=== PATIENT | male | born 1985 | race Caucasian/White ===

== ENCOUNTER 2017-10-13 01:14 | Emergency (ER) | payer SELFPAY ==
[2017-10-13 01:15] VITALS: BP 118/66; PULSE 75; RESP 19; TEMP 36.6; O2SAT 94; BMI 19.8
--- NOTE | 2017-10-13 01:39 | RAD_ITS ---
STUDY: X-RAY CHEST REASON FOR EXAM: Male, 31 years old. Cough and possible infected Srivastava's catheter. TECHNIQUE: PA and lateral views of the chest. COMPARISON: September 26, 2015. FINDINGS: Right-sided Srivastava catheter is present with the tip of the catheter at the cavoatrial junction. The lungs are hyperexpanded. There is mild prominence of bronchovascular markings, particularly in the right lung. There is no demonstrated pleural abnormality. Normal size heart. Normal mediastinum and minerva. There is prominence of the pulmonary hilar arteries without peripheral pulmonary vascular congestion. Normal visualized aortic arch and descending thoracic aorta. Normal visualized thoracic spine. Normal visualized ribs, clavicles, and shoulders. There is no demonstrated abnormality of the visualized soft tissue structures of the upper abdomen. RAD/Chest PA and Lateral IMPRESSION: Mild pulmonary congestion. Electronically Signed: Josie Cuevas MD at 3:48 EDT , Service support ,
[2017-10-13 02:26] VITALS: BP 128/83; PULSE 74; RESP 18
[2017-10-13 02:26] LABS: Absolute Lymphocyte Count 2.64 X10^3/ul (0.83-4.51); Absolute Neutrophil Count 7.2 X10^3/uL (2.0-7.7); Basophil# 0.08 X10^3/uL; Basophil% 0.7 % (0-1); Eosinophil# 0.49 X10^3/uL; Eosinophils% 4.2 % (0-5); Hematocrit 46.2 % (40-54); Hemoglobin 15.7 g/dl (13.0-16.5); Lymphocyte # 2.64 X10^3/ul (4.0); Lymphocyte % 22.6 % (19-41); Mean Corpuscular Hgb 30.5 pg (27.0-32.0); Mean Corpuscular Volume 89.9 fL (80-94); Mean Platelet Vol. 9.3 fl (6.2-12.0); Monocyte# 1.23 X10^3/uL; Monocyte% 10.5 % (0-10); Neutrophil # 7.22 X10^3/uL (2.7-7.7); Neutrophil % 61.8 % (47-70); Platelet Count 303 K/mm3 (150-450); RBC Distribution Width SD 48.7 fl (35.1-43.9); Red Blood Count 5.14 M/mm3 (4.6-6.2); White Blood Count 11.7 K/mm3 (4.4-11.0)
[2017-10-13 02:29] LABS: POSITIVE COUNT NO; POSITIVE DIFFERENTIAL NO; POSITIVE MORPHOLOGY NO
[2017-10-13 02:35] LABS: Prothrombin Time (Protime)PT. 13.5 SECONDS (11.7-14.9)
[2017-10-13 02:36] LABS: Partial Thromboplast Time 32.3 Seconds (24.1-36.2)
[2017-10-13 02:38] LABS: ALB/GLOB Ratio 1.2 RATIO (0.9-2.4); AST(SGOT) 12 U/L (15-37); Alanine Aminotransfer ALT/SGPT 19 U/L (16-61); Albumin, Serum 3.8 g/dL (3.2-5.0); Alkaline Phosphatase 103 U/L (45-117); Anion Gap 6 (5-15); BUN 7 mg/dL (7-18); BUN/Creat Ratio 7.3 RATIO (10-20); Calcium,Total 8.6 mg/dL (8.5-10.1); Chloride 110 mmol/L (98-107); Creatinine, Serum 0.96 mg/dL (0.70-1.30); EST Glomerular Filtration Rate 97 mL/min (>60); Est Glom Filt Rate - Afr Amer 117 mL/min (>60); Estimated Creatinine Clearance 101.56 ml/min; Globulin 3.3 g/dL (2.2-4.2); Glucose 106 mg/dL (74-106); Lactic Acid 0.7 mmol/L (0.4-2.0); Potassium 3.3 mmol/L (3.5-5.1); Protein, Total 7.1 g/dL (6.4-8.2); Sodium Level 143 mmol/L (136-145)
--- NOTE | 2017-10-13 03:11 | RAD_ITS ---
STUDY: X-RAY - LEFT WRIST REASON FOR EXAM: Male, 31 years old. Jumped off a roof, landed on wrist one month ago. Patient punched a door one week ago. Pain TECHNIQUE: 3 view(s) of the wrist were obtained. COMPARISON: Left hand 08/09/2015 FINDINGS: There is a curvilinear osseous fragment dorsal carpal level on lateral view. There is adjacent soft tissue swelling. Normal visualized distal radius and ulna. Normal radiocarpal articulation. Normal distal radioulnar articulation. Otherwise normal carpal bones. Normal carpal articulations. Normal carpometacarpal articulation of the thumb. Normal second through fifth carpometacarpal articulations. Normal visualized metacarpal bones. The soft tissue structures are unremarkable. RAD/Wrist min 3 Views IMPRESSION: Fracture of the triquetrum, new since previous examination with soft tissue swelling. Electronically Signed: Dominga Mitchell MD at 4:20 EDT , Service support ,
--- NOTE | 2017-10-13 04:11 | ED.VISSUMM ---
- ER Visit Summary Date of Service: 10/13/17 Chief Complaint: Skin infection History of Present Illness: The patient is a 31 M presenting for evaluation due to concern for a skin infection. Patient has a unusual history of having severe pulmonary hypertension. He has a Srivastava catheter in his chest, and has a pump that administers prostaglandins continuously into his bloodstream. Patient states that over the course of the last couple of days he has had some increasing redness and pain surrounding his catheter. He denies any constitutional symptoms such as fever. He denies any other infectious signs or symptoms such as nausea vomiting diarrhea cough runny nose sore throat. Patient states that this catheter has been in place for about 4 years without any sort of complications. He does dressing changes every other day. Review of systems otherwise negative. Physical Examination: Vital signs are within normal limits, patient is afebrile. Well-nourished male sitting comfortably in the bed. Moist mucous membranes no conjunctival pallor no scleral icterus. No JVD noted. Heart was regular rate and rhythm. Respirations were nondistressed, lungs were clear. There is diffuse blanching erythema across the patient's chest and back which he states is chronic and is associated with his prostaglandin infusion, but there is a mild amount of confluent erythema directly surrounding the patient's Srivastava catheter. Dressing was taken down and the catheter was found to be clean dry and intact. Remainder the physical otherwise is unremarkable. Test Results: CBC shows only mild leukocytosis of 11.7, chemistry is within normal limits, chest x-ray shows pulmonary vascular congestion, wrist x-ray shows no evidence of acute fracture per my personal review Emergency Department Course and Treatment: Patient presented for evaluation due to concern for an infection. Patient was evaluated with lab work showed only a mild leukocytosis no evidence of acidosis or anion gap. His chest x-ray was unremarkable. Patient is well appearing, his erythema seems very localized, is not septic I do believe that he is appropriate for initial treatment with oral antibiotics. He has a severe penicillin allergy, and states that azithromycin has worked for him in the past so he was started on a course of azithromycin. Patient understands signs and symptoms which to return to follow-up with his primary care physician. While in the emergency department the patient did complain that he injured his wrist a couple weeks ago, and x-ray was obtained which showed no acute fracture he was recommended conservative management. Disposition: Discharge Impression: 1. Right chest cellulitis 2. Left wrist sprain This note was generated with [employer] dictation software. It may contain incorrect words, spelling, and punctuation that were not noted in review of the chart prior to signing ED Disposition - Plan for ED Patient: Disposition: Home or Assisted Living Chief Complaint: Wound Diagnosis: Cellulitis, Wrist sprain Instructions: ED Infec Skin Cellulitis Prescriptions: Azithromycin [Zithromax] 250 mg PO DAILY #4 tab Additional Instructions: Followup with your PCP in 3-5 days. Return immediately for worsening symptoms
[2017-10-13] MEDS: Azithromycin 250 MG Tablet 500 MG PO (04:30)
[2017-10-13 04:42] VITALS: BP 109/88; PULSE 74; RESP 18; TEMP 36.6; O2SAT 94
== END 2017-10-13 04:43 | disposition home or self-care (01) ==
PROVIDERS: Emergency Provider Emergency Medicine
DX: T80.212A Local infection due to central venous catheter, initial encounter (principal); L03.313 Cellulitis of chest wall; S63.502A Unspecified sprain of left wrist, initial encounter; X58.XXXA Exposure to other specified factors, initial encounter; Y93.9 Activity, unspecified; Y92.9 Unspecified place or not applicable; I27.20 Pulmonary hypertension, unspecified; Z72.0 Tobacco use
CPT/HCPCS: 36415; 71046; 73110; 80053; 83605; 85025; 85610; 85730; 87040; 99285; A4216

== ENCOUNTER 2018-02-01 19:51 | Emergency (ER) | payer SELFPAY ==
[2018-02-01 19:52] VITALS: BP 126/70; PULSE 67; RESP 16; TEMP 36.5; O2SAT 99; BMI 22.9
--- NOTE | 2018-02-01 20:13 | CT_ITS ---
STUDY: CT ABDOMEN AND PELVIS WITH CONTRAST REASON FOR EXAM: Male, 32 years old. Right lower quadrant and suprapubic pain RADIATION DOSAGE (If Supplied By Facility): CTDIvol = ( 8.25 ) mGy, DLP = ( 358.42 ) mGycm TECHNIQUE: Transaxial images were obtained from the dome of the diaphragm to the symphysis pubis without oral contrast. 100 ml of Isovue 300 contrast was administered. Sagittal and coronal images were reconstructed. Individualized dose optimization techniques were used for this CT. COMPARISON: None. FINDINGS: The visualized lung bases are unremarkable. The heart size is normal. There is no pericardial effusion. There is a 1.6 x 1.0 cm right hepatic lobe cyst. There is an additional 1.1 cm cyst of the inferior right hepatic lobe tip. There is intrahepatic periportal edema. Normal gallbladder and extrahepatic biliary system. Normal spleen. Normal pancreas. There is mild dilatation of the pancreatic duct measuring up to 3 mm. There is a lower pole 1.4 cm cyst of the right kidney. Normal left kidney. There is a large amount of food in the stomach. Normal small intestine. Normal colon. There is non-visualization of the appendix. Normal abdominal aorta. Normal inferior vena cava. Normal retroperitoneum. Normal urinary bladder. The prostate is slightly generous in size. There is diffusely increased pelvic vascularity. There is a left inguinal hernia containing a nondistended loop of small bowel. Normal osseous structures. CT/Abdomen/Pelvis W IV Cont ONLY IMPRESSION: 1. Intrahepatic periportal edema. 2. Right hepatic lobe cysts as described above. 3. Mild dilatation of the pancreatic duct measuring up to 3 mm. 4. Lower pole 1.4 cm cyst of the right kidney. 5. The prostate is slightly generous in size. There is diffusely increased pelvic vascularity. 6. Left inguinal hernia containing a nondistended loop of small bowel. 7. The appendix was not visualized. Electronically Signed: Nilson Pratt MD at 21:13 EDT , Service support ,
[2018-02-01] MEDS: Ketorolac 30 MG/ML Syringe IV (20:18)
--- NOTE | 2018-02-01 20:20 | ED.DCSUM_ITS ---
- ER Visit Summary Date of Service: 02/01/18 Chief Complaint: Lower abdominal pain History of Present Illness: The patient is a 32 M states since this morning is a suprapubic right lower quadrant abdominal pain. Is gotten worse throughout the day. He denies any trauma. He denies any nausea, vomiting, diarrhea, constipation nor fever. No hematuria or dysuria. No urinary retention. He has never had any abdominal surgery. Denies any back pain. Nothing specifically makes the pain better or worse. Physical Examination: Well-appearing young male. No acute distress. Vital signs are stable. Afebrile. No distress. HEENT exam unremarkable. Moist mucous membranes. Neck nontender no lymphadenopathy. Lungs clear to auscultation bilaterally. Heart regular rate and rhythm. No murmur. Rate about 70. Abdomen is soft. Nondistended. Normal bowel sounds. No peritoneal signs. Tender both the suprapubic and mildly in the right lower quadrant but primarily suprapubic. No hernias or masses. Test Results: CBC shows a slightly elevated white count of 13.3. Normal hemoglobin. Electrolytes unremarkable. Normal creatinine and gap. Liver enzymes normal. Lipase normal. UA normal. No signs of infection or blood. CT abdomen pelvis with IV contrast shows intrahepatic periportal edema. Slightly enlarged prostate. Small left inguinal hernia. The appendix is not visualized. There are no signs of acute appendicitis. Emergency Department Course and Treatment: Patient treated with IV Toradol for pain. Repeat exam at 22:01 PM. Patient is doing well. Exam is unchanged. Only mildly tender in the suprapubic region. There is no distention of the bladder. There are no hernias. External exam is nontender without masses. No signs of torsion. No lymphadenopathy. Treatment Plan: Discharged home. Tylenol and/or Motrin for pain. Follow-up with a primary care physician. Return if worse. Disposition: Discharge Impression: Acute suprapubic abdominal plain of uncertain etiology. Small left inguinal hernia This note was generated with [employer] dictation software. It may contain incorrect words, spelling, and punctuation that were not noted in review of the chart prior to signing ED Disposition - Plan for ED Patient: Chief Complaint: Abd Pain Referrals: [facility] Doctor,Out of [NON-STAFF] -
[2018-02-01 20:46] LABS: Anion Gap 6 (5-15); BUN 8 mg/dL (7-18); BUN/Creat Ratio 7.1 RATIO (10-20); Calcium,Total 8.9 mg/dL (8.5-10.1); Chloride 107 mmol/L (98-107); Creatinine, Serum 1.12 mg/dL (0.70-1.30); EST Glomerular Filtration Rate 81 mL/min (>60); Est Glom Filt Rate - Afr Amer 98 mL/min (>60); Estimated Creatinine Clearance 100.04 ml/min; Glucose 79 mg/dL (74-106); Sodium Level 142 mmol/L (136-145)
[2018-02-01 20:55] LABS: Absolute Lymphocyte Count 1.86 X10^3/ul (0.83-4.51); Absolute Neutrophil Count 10.2 X10^3/uL (2.0-7.7); Basophil# 0.03 X10^3/uL; Basophil% 0.2 % (0-1); Eosinophil# 0.21 X10^3/uL; Eosinophils% 1.6 % (0-5); Hemoglobin 15.4 g/dl (13.0-16.5); Lymphocyte # 1.86 X10^3/ul (4.0); Mean Corp Hgb Conc 33.5 g/gl (32-36); Mean Corpuscular Hgb 30.8 pg (27.0-32.0); Mean Platelet Vol. 9.1 fl (6.2-12.0); Monocyte# 0.99 X10^3/uL; Monocyte% 7.5 % (0-10); Neutrophil # 10.15 X10^3/uL (2.7-7.7); Neutrophil % 76.5 % (47-70); Platelet Count 273 K/mm3 (150-450); RBC Distribution Width CV 13.8 % (11.6-14.6); RBC Distribution Width SD 46.2 fl (35.1-43.9); White Blood Count 13.3 K/mm3 (4.4-11.0)
[2018-02-01 21:05] LABS: Bacteria 0 SEEN /hpf (None Seen); Mucous, Urine 0 SEEN /hpf (<or=2+); Red Blood Cells-Urine 0 SEEN /hpf (0-5); White Blood Cells 0 SEEN /hpf (0-5)
[2018-02-01 21:06] LABS: Color, Urine Yellow (Yellow); Glucose, Dipstick Normal (Normal); Ketone-Dipstick Negative (Negative); Leukocyte Esterase-Dipstick Negative /ul (Negative); Nitrite-Dipstick Negative (Negative); Occult Blood-Urine Negative /ul (Negative); Protein-Dipstick 15 mg/dl (Negative); Specific Gravity, Urine 1.005 (1.002-1.030); Urine Bilirubin Dipstick Negative (Negative); Urine Clarity Clear (Clear); Urine Urobilinogen Normal (Normal)
[2018-02-01 21:08] LABS: POSITIVE COUNT NO; POSITIVE DIFFERENTIAL NO; POSITIVE MORPHOLOGY NO
[2018-02-01 21:18] LABS: Squamous Epithelial Cells - UA 0-5 SEEN /hpf (0-5)
[2018-02-01 22:07] LABS: Lipase 161 U/L (73-393)
[2018-02-01 22:10] LABS: AST(SGOT) 18 U/L (15-37); Alanine Aminotransfer ALT/SGPT 20 U/L (16-61); Alkaline Phosphatase 105 U/L (45-117); Bilirubin, Direct 0.12 mg/dL (0.00-0.30); Globulin 3.2 g/dL (2.2-4.2); Protein, Total 7.2 g/dL (6.4-8.2)
--- NOTE | 2018-02-01 22:14 | ED.DEP ---
ED Disposition - Plan for ED Patient: Disposition: Home or Assisted Living Chief Complaint: Abd Pain Instructions: ED Abdominal Pain Unkn Cause Referrals: Josh Bae MD [NON-STAFF] - 1 Week if not improving Additional Instructions: Tylenol and/or Motrin for pain. Follow-up with Dr. Bae as needed. Return if feeling worse but your workup tonight was unremarkable except for a small left groin hernia.
[2018-02-01 22:20] VITALS: BP 111/72; PULSE 68; RESP 15; O2SAT 97
== END 2018-02-01 22:23 | disposition home or self-care (01) ==
PROVIDERS: Emergency Provider Emergency Medicine
DX: R10.31 Right lower quadrant pain (principal); K40.90 Unilateral inguinal hernia, without obstruction or gangrene, not specified as recurrent; Z72.0 Tobacco use
CPT/HCPCS: 74177; 80048; 80076; 81001; 83690; 85025; 96374; 99283; Q9967; A4216

== ENCOUNTER 2018-10-08 07:41 | Emergency (ER) | payer SELFPAY ==
[2018-10-08 07:42] VITALS: BP 131/74; PULSE 53; RESP 14; TEMP 36.4; O2SAT 100; BMI 20.2
--- NOTE | 2018-10-08 07:51 | CT_ITS ---
STUDY: CT ABDOMEN AND PELVIS WITHOUT CONTRAST REASON FOR EXAM: Male, 32 years old. Left upper quadrant pain for 24 hours. RADIATION DOSAGE (If Supplied By Facility): CTDIvol = ( 6.04 ) mGy, DLP = ( 289.93 ) mGycm TECHNIQUE: Transaxial images were obtained from the dome of the diaphragm to the symphysis pubis without oral contrast, and without intravenous contrast. Sagittal and coronal images were reconstructed. Individualized dose optimization techniques were used for this CT. COMPARISON: Comparison is made with prior study dated February 01, 2018. FINDINGS: Stable mild increased markings at the lung bases suggestive of atelectasis. The visualized portions of the heart are within normal limits. 1.7 cm cyst in the right lobe of the liver. Normal gallbladder and extrahepatic biliary system. Normal spleen. Normal pancreas. Normal bilateral adrenal glands. There is a 1.1 cm cyst in the lower pole of the right kidney. Normal left kidney. Normal visualized stomach. Normal small intestine. Normal colon. The appendix is visualized and appears normal. Normal abdominal aorta. Normal inferior vena cava. Normal retroperitoneum. Normal urinary bladder. There is a left-sided inguinal hernia containing adipose tissue. Normal osseous structures. CT/Abdomen/Pelvis without Cont IMPRESSION: Mild increased markings at the lung bases suggestive of atelectasis. Small right renal cyst. Small cyst in the right lobe of liver. Electronically Signed: Tae Carrero, at 9:51 EDT , Service support ,
--- NOTE | 2018-10-08 08:20 | ED.DCSUM_ITS ---
- ER Visit Summary Date of Service: 10/08/18 Chief Complaint: Abdominal pain History of Present Illness: The patient is a 32 M who his primary care physician is in [place]. He reports he has left upper quadrant abdominal pain that began yesterday. It is a sharp pain that is gradually gotten worse. Is 10 out of 10 severity. Is worsened by movement relieved by remaining still. He said nausea without vomiting. He denies any diarrhea. His last bowel was yesterday. No melena or hematochezia. No dysuria or frequency. No fever or chills. Physical Examination: Vitals: Stable. Afebrile. General: Well-nourished and well-developed. Head: Normocephalic atraumatic. Neck: Supple, no lymphadenopathy. No JVD. Nontender. Cardiovascular: Regular rate and rhythm. No murmurs. Respiratory: No respiratory distress. Clear to auscultation bilaterally. Abdominal: Soft, mild left upper quadrant tenderness to palpation, nondistended, normal bowel sounds. No guarding, rebound, or peritoneal signs. Back: Nontender. Extremities: Nontender, no edema. Skin: Normal color, no rash. Neurologic: Alert and oriented ?3. Cranial nerves II through XII are intact. Normal strength and sensation. Psych: Normal affect. Test Results: CBC shows a white count of 13.3 with 75 segmented neutrophils and 15 lymphocytes. H&H is 11.2 and 36.1. Chem-7 shows a chloride 108 and glucose 119. Clinical Impression(s) from Imaging Studies Abdomen/Pelvis CT 10/08/18 07:51 IMPRESSION: Mild increased markings at the lung bases suggestive of atelectasis. Small right renal cyst. Small cyst in the right lobe of liver. Electronically Signed: Tae Carrero, at 9:51 EDT , Service support , Emergency Department Course and Treatment: Patient had an IV placed. He is given Toradol and Zofran IV. He is resting comfortably. Treatment Plan: This time I do not have an explanation for the patient's pain. He will be discharged with Zofran and Bentyl. Instructed to follow-up with his primary care physician in 1 to 2 days if not improving. Return to the emergency department for any worsening symptoms. Disposition: To home in improved and stable condition. Impression: 1. Abdominal pain, uncertain cause. This note was generated with [employer] dictation software. It may contain incorrect words, spelling, and punctuation that were not noted in review of the chart prior to signing ED Disposition - Plan for ED Patient: Instructions: ABDOMINAL PAIN, Unkown Cause, (Male) Prescriptions: Dicyclomine HCl [Bentyl] 20 mg PO TIDAC #20 capsule Ondansetron [Zofran Odt] 4 mg PO Q8H PRN PRN #10 tablet PRN Reason: Nausea Referrals: Doctor,Your [STAFF PHYSICIAN] - 1-2 Days if not improving
[2018-10-08 08:49] LABS: Absolute Lymphocyte Count 1.95 X10^3/ul (0.83-4.51); Basophil# 0.04 X10^3/uL; Basophil% 0.3 % (0-1); Eosinophil# 0.09 X10^3/uL; Eosinophils% 0.7 % (0-5); Hematocrit 36.1 % (40-54); Hemoglobin 11.2 g/dl (13.0-16.5); Lymphocyte # 1.95 X10^3/ul (4.0); Lymphocyte % 14.7 % (19-41); Mean Corpuscular Hgb 25.2 pg (27.0-32.0); Mean Corpuscular Volume 81.3 fL (80-94); Mean Platelet Vol. 8.9 fl (6.2-12.0); Neutrophil # 9.98 X10^3/uL (2.7-7.7); Neutrophil % 75.1 % (47-70); Platelet Count 284 K/mm3 (150-450); RBC Distribution Width CV 16.6 % (11.6-14.6); RBC Distribution Width SD 49.8 fl (35.1-43.9); Red Blood Count 4.44 M/mm3 (4.6-6.2); White Blood Count 13.3 K/mm3 (4.4-11.0)
[2018-10-08 08:50] LABS: POSITIVE COUNT NO; POSITIVE DIFFERENTIAL NO; POSITIVE MORPHOLOGY NO
[2018-10-08] MEDS: Ketorolac 30 MG/ML Syringe IV (08:56)
[2018-10-08] MEDS: Ondansetron 4 MG/2 ML Vial IV (08:56)
[2018-10-08 08:57] LABS: Anion Gap 6 (5-15); BUN 9 mg/dL (7-18); BUN/Creat Ratio 8.3 RATIO (10-20); Calcium,Total 8.9 mg/dL (8.5-10.1); Chloride 108 mmol/L (98-107); Creatinine, Serum 1.09 mg/dL (0.70-1.30); EST Glomerular Filtration Rate 83 mL/min (>60); Est Glom Filt Rate - Afr Amer 100 mL/min (>60); Estimated Creatinine Clearance 90.51 ml/min; Glucose 119 mg/dL (74-106); Potassium 3.5 mmol/L (3.5-5.1); Sodium Level 140 mmol/L (136-145)
[2018-10-08 09:08] LABS: Bacteria 0 SEEN /hpf (None Seen); Mucous, Urine 0 SEEN /hpf (<or=2+); Red Blood Cells-Urine 0 SEEN /hpf (0-5); Squamous Epithelial Cells - UA 0 SEEN /hpf (0-5); White Blood Cells 0 SEEN /hpf (0-5)
[2018-10-08 09:18] LABS: Color, Urine Yellow (Yellow); Glucose, Dipstick Normal (Normal); Ketone-Dipstick Negative (Negative); Leukocyte Esterase-Dipstick Negative /ul (Negative); Nitrite-Dipstick Negative (Negative); Occult Blood-Urine Negative /ul (Negative); Protein-Dipstick Negative (Negative); Urine Bilirubin Dipstick Negative (Negative); Urine Clarity Clear (Clear); Urine Urobilinogen Normal (Normal)
[2018-10-08 10:16] VITALS: BP 128/71; PULSE 51; RESP 16; O2SAT 98
== END 2018-10-08 10:17 | disposition home or self-care (01) ==
LOC: ED 08:06
PROVIDERS: Emergency Provider Emergency Medicine
DX: R10.12 Left upper quadrant pain (principal); R11.0 Nausea; Z72.0 Tobacco use
CPT/HCPCS: 74176; 80048; 81001; 85025; 96374; 96375; 99283; J7030; J2405

== ENCOUNTER 2019-04-04 21:56 | Emergency (ER) | payer SELFPAY ==
[2019-04-04 21:56] VITALS: BP 146/84; PULSE 70; RESP 15; TEMP 36.6; O2SAT 100
[2019-04-04] MEDS: 0.9% Normal Saline 1,000 ML 1000 ML IV (23:12)
[2019-04-04] MEDS: Morphine 4 MG/ML Syringe IV (23:12)
[2019-04-04] MEDS: Ondansetron 4 MG/2 ML Vial IV (23:12)
[2019-04-04 23:13] LABS: Absolute Lymphocyte Count 1.57 X10^3/uL (0.83-4.51); Absolute Neutrophil Count 14.1 X10^3/uL (2.0-7.7); Basophil# 0.06 X10^3/uL; Basophil% 0.4 % (0-1); Eosinophil# 0.12 X10^3/uL; Eosinophils% 0.7 % (0-5); Hemoglobin 13.7 g/dL (13.0-16.5); Lymphocyte # 1.57 X10^3/ul (4.0); Lymphocyte % 9.2 % (19-41); Mean Corp Hgb Conc 31.9 g/dL (32-36); Mean Corpuscular Hgb 27.6 pg (27.0-32.0); Mean Corpuscular Volume 86.7 fL (80-94); Mean Platelet Vol. 8.8 fl (6.2-12.0); Monocyte# 1.15 X10^3/uL; Monocyte% 6.7 % (0-10); NRBC Flagged by Analyzer 0 % (0-5); Neutrophil # 14.08 X10^3/uL (2.7-7.7); Neutrophil % 82.6 % (47-70); Platelet Count 345 K/mm3 (150-450); RBC Distribution Width CV 16.5 % (11.6-14.6); RBC Distribution Width SD 52.2 fl (35.1-43.9); Red Blood Count 4.96 M/mm3 (4.6-6.2)
--- NOTE | 2019-04-04 23:16 | ED.VIS.GEN ---
History of Present Illness Chief Complaint: Abd Pain Detail of Chief Complaint: Bilateral upper quadrant abdominal pain Informant: Patient Onset: Today Context: Sudden Onset Timing: Continuous, Waxes and wanes Quality: Pain Location: Right and left upper quadrant Current Severity: Moderate Maximum Severity: Severe Worsened by: Stretching out Relieved by: Nothing Associated Symptoms: Nausea Narrative: Patient is a 33-year-old male who states has a hernia. Old records reviewed and patient had a CT of the abdomen February 01, 2018 and revealed a inguinal hernia. There is other nonspecific changes noted as well. He was seen again for abdominal pain October 08, 2018 and noted to have a hepatic cyst. There was no evidence or mention of hernia. Patient presents with abrupt onset of bilateral upper abdominal pain with nausea. He denies history of cholelithiasis or symptoms of cholelithiasis and denies history of pancreatitis. He does smoke 1 pack/day. He does admit to drinking 2 beers today. He does drink weekly. He denies hematemesis, melena medic easier. He denies respiratory symptoms. He denies cardiac symptoms. He denies dysuria, frequency, urgency or hematuria. There is no history of renal ureterolithiasis. Prior similar symptoms: Yes Recent Illness/Hospitalization: No - Past Medical History (1) No significant past medical history Status: Acute Past Medical History - Allergies and Home Meds Allergies/Adverse Reactions: Allergies Penicillins Allergy (Verified 04/04/19 21:59) Hives vancomycin Allergy (Verified 04/04/19 21:59) Hives Primary Care Physician: Care Physician,No Primary [Primary Care Provider] - Prior records reviewed: Yes Surgical History: no surgical history Lives: Spouse/ Significant Other Smoking Status: Current every day smoker Alcohol: Occasional Drugs: None Review of Systems General: Denies: Chills, Fever, Sweats ENT: Denies: Rhinorrhea, Sore throat Cardiovascular: Denies: Chest pain, Palpitations Respiratory: Denies: Dyspnea, Cough, Dyspnea on exertion Gastrointestinal: Reports: Abdominal pain, Nausea. Denies: Vomiting, Diarrhea, Constipation, Melena, Hematochezia, -, - Genitourinary: Denies: Dysuria, Hematuria, Frequency Musculoskeletal: Denies: Myalgias, Arthralgias, Neck pain, Back pain, Swelling, Extremity Pain, -, - Skin: Denies: Rash, Wounds Neurological: Denies: Headache, Weakness, Numbness Hematologic: Denies: Easy bruising, Easy bleeding Allergy: Denies: Uticaria, Swelling of the mouth Physical Exam Vital Signs/Narrative: Vital Signs Temp Pulse Resp BP Pulse Ox 04/04/19 21:56 97.9 F 70 15 146/84 H 100 Inital Vital Signs reviewed: Yes General: Well nourished, Well developed, - - Appears uncomfortable. Head: Normocephalic, Atraumatic. Negative for: Trauma, Tenderness Eyes: Perrl, EOMI. Negative for: Pale conjunctiva ENT: No rhinorrhea, TM's clear Neck: Supple, Nontender, No lymphadenopathy, No JVD Cardiovascular: Regular rate, Regular rhythm, No murmurs, Normal S1, Normal S2 Respiratory: No distress, CTA bilaterally, Chest nontender. Negative for: Retractions Abdomen: Soft, Nondistended, No masses, Tender, Hypoactive bowel sounds. Negative for: Nontender, Hepatomegaly, Splenomegaly, Pulsatile mass, Ventral hernia, Umbilical hernia Rectal: Deferred Back: Nontender, Normal Inspection. Negative for: CVA tenderness Extremities: Nontender, No edema Skin: Normal color, No rash, No Trauma. Negative for: Cyanosis, Diaphoresis, Jaundice Neurological: Alert, Oriented x3, Cranial nerves II-XII grossly intact, Normal Strength, Normal Sensation Psychological: Normal affect, Normal Mood Diagnostic/Tx/Re-eval 04/05/19 00:17 Abdomen/Pelvis WITH Contrast [CT] Stat Laboratory Results 04/04/19 04/04/19 23:05 23:05 WBC 17.0 H RBC 4.96 Hgb 13.7 Hct 43.0 MCV 86.7 MCH 27.6 MCHC 31.9 L RDW Std Deviation 52.2 H RDW Coeff of Chapito 16.5 H Plt Count 345 MPV 8.8 Immature Gran % (Auto) 0.400 Neut % (Auto) 82.6 H Lymph % (Auto) 9.2 L Hill % (Auto) 6.7 Eos % (Auto) 0.7 Baso % (Auto) 0.4 Absolute Neuts (auto) 14.1 H Absolute Lymphs (auto) 1.57 Nucleated RBC % 0 Sodium 142 Potassium 3.8 Chloride 109 H Carbon Dioxide 25.0 Anion Gap 8 BUN 14 Creatinine 1.05 Estim Creat Clear Calc 92.14 Est GFR (MDRD) Af Amer 104 Est GFR (MDRD) Non-Af 86 BUN/Creatinine Ratio 13.3 Glucose 75 Calcium 9.0 Total Bilirubin 0.30 AST 14 L ALT 20 Alkaline Phosphatase 83 Total Protein 7.2 Albumin 4.1 Globulin 3.1 Albumin/Globulin Ratio 1.3 Lipase 248 Etiology of leukocytosis is unknown. Liver enzymes and lipase are normal. Since patient has significant tenderness CT of the abdomen with p.o. and IV contrast was ordered. Case to be turned over to the night physician, Dr. Ranulfo Juárez. - Medical Decision Making Diagnosis is a nontender unknown etiology, cholelithiasis, gallstone pancreatitis, gastritis, peptic ulcer disease. Work-up included CBC, comprehensive metabolic panel, lipase. IV was established and he did receive IV Zofran and 4 mg of morphine IV push. CT of the abdomen with p.o. and IV contrast to evaluate acute bilateral upper abdominal pain and leukocytosis. Disposition to be made after CT results are available for review and interpretation. ED Disposition - Plan for ED Patient: Diagnosis: Bilateral upper abdominal pain, Leukocytosis, unspecified Referrals: Care Physician,No Primary [Primary Care Provider] -
[2019-04-04 23:47] LABS: ALB/GLOB Ratio 1.3 RATIO (0.9-2.4); AST(SGOT) 14 U/L (15-37); Alanine Aminotransfer ALT/SGPT 20 U/L (16-61); Albumin, Serum 4.1 g/dL (3.2-5.0); Alkaline Phosphatase 83 U/L (45-117); Anion Gap 8 (5-15); BUN 14 mg/dL (7-18); BUN/Creat Ratio 13.3 RATIO (10-20); Chloride 109 mmol/L (98-107); Creatinine, Serum 1.05 mg/dL (0.70-1.30); EST Glomerular Filtration Rate 86 mL/min (>60); Est Glom Filt Rate - Afr Amer 104 mL/min (>60); Estimated Creatinine Clearance 92.14 ml/min; Globulin 3.1 g/dL (2.2-4.2); Glucose 75 mg/dL (74-106); Lipase 248 U/L (73-393); Potassium 3.8 mmol/L (3.5-5.1); Protein, Total 7.2 g/dL (6.4-8.2); Sodium Level 142 mmol/L (136-145)
--- NOTE | 2019-04-05 00:17 | CT_ITS ---
HISTORY: Mid abdominal pain for one day. Pump for primary pulmonary hypertension since 1996. TECHNIQUE: Helically acquired images were obtained of the abdomen and pelvis following the intravenous administration of 92 mL of Isovue-370 Iodinated contrast. 2D reformats. Oral contrast was administered. A radiation dose optimization technique was used for this scan. COMPARISON: Most recent comparison is from February 01, 2018. Additional comparison from October 08, 2018. FINDINGS: # of images incl. paperwork: 373 LUNG BASES: Trace dependent basilar atelectasis with minimal interstitial prominence CT abdomen: Bones are unremarkable. The gallbladder remains. Multiple hypodense lesions are present throughout the liver. The largest of these is within the anterior segment of the right hepatic lobe. It has a lobular configuration. Margins are well-defined. It measures 17 mm in long axis dimensions. It is similar in appearance to the February 01, 2018 study which was also performed with contrast. It is better defined than the previous study of October 08, 2018, which was noncontrast. Although it is small and difficult to accurately assess its central density, I measure it central density at 6 Hounsfield units, suggestive of a benign hepatic cyst. The other smaller lesions are likely of the same etiology. The spleen, pancreas, and adrenal glands, are normal. Hypodense lesion on the inferior pole of the right kidney is similar to the previous study, and consistent with a benign cyst. Left kidney is normal. The aorta is normal. Circumaortic left renal vein as a normal anatomic variant. . CT pelvis: Trace pelvic ascites is present. The prostate gland is not enlarged. The appendix is not identified. The bladder is decompressed with a thick wall. A left inguinal hernia contains small bowel that is opacified with oral contrast. There is no significant pathological distention of the small bowel upstream from the hernia. The oral contrast is present within the lumen of small bowel downstream from the hernia. No bowel wall thickening is perceived. The amount of bowel within the left inguinal hernia has increased since the January 2018 study. In September 2017 there was just mesenteric fat within the hernia CT/Abdomen/Pelvis WITH Contrast IMPRESSION: Left inguinal hernia containing an opacified loop of small bowel without evidence for causing small bowel obstruction. The size of the hernia has increased since the 2 previous studies. The inferior extent of the hernia is lower than the lowest image. The visualized portions of today's hernia measure 4.8 x 6 x 5.4 cm. Individualized dose optimization techniques were used for this CT. at 0239 Reported and signed by: Herve Gastelum MD Electronically Signed: Herve Gastelum MD at 2:38 EST Tel , Service support ,
[2019-04-05 02:08] VITALS: BP 128/74; PULSE 71; RESP 18; O2SAT 95
[2019-04-05] MEDS: Morphine 4 MG/ML Syringe IV (02:17)
[2019-04-05 02:54] VITALS: BP 128/74; PULSE 71; RESP 18; O2SAT 95
--- NOTE | 2019-04-05 02:54 | ED.DEP ---
ED Disposition - Plan for ED Patient: Disposition: Home or Assisted Living Diagnosis: Bilateral upper abdominal pain, Leukocytosis, unspecified Instructions: ABDOMINAL PAIN, Unkown Cause, (Male) Referrals: Care Physician,No Primary [Primary Care Provider] - Mali Mcclure MD [STAFF PHYSICIAN] -
== END 2019-04-05 03:08 | disposition home or self-care (01) ==
PROVIDERS: Emergency Provider Emergency Medicine
DX: R10.11 Right upper quadrant pain (principal); R10.12 Left upper quadrant pain; D72.829 Elevated white blood cell count, unspecified; F17.200 Nicotine dependence, unspecified, uncomplicated
CPT/HCPCS: 74177; 80053; 83690; 85025; 96361; 96374; 96375; 96376; 99283; J7030; Q9967; A4216; J2405

== ENCOUNTER 2020-02-24 18:11 | Emergency (ER) | payer OTHER, SELFPAY ==
[2020-02-24 18:14] VITALS: BP 153/80; PULSE 92; RESP 15; TEMP 36; O2SAT 95; BMI 19.2
--- NOTE | 2020-02-24 18:46 | RAD_ITS ---
STUDY: X-RAY - THORACIC SPINE REASON FOR EXAM: Male, 34 years old. injured back at work while heavy lifting TECHNIQUE: 3 view(s) of the thoracic spine were obtained. COMPARISON: None. FINDINGS: Normal kyphosis of the thoracic spine. There is no substantial scoliosis. Normal thoracic vertebrae and endplates. Normal disc space heights. The soft tissue structures are unremarkable. RAD/Thoracic Spine 2 Views IMPRESSION: Normal x-ray examination of the thoracic spine. Electronically Signed: Tirso Mesa MD at 19:48 EST , Service support ,
--- NOTE | 2020-02-24 18:48 | ED.VIS.GEN ---
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 He has had this before, he has history of lumbar disc disease pulmonary hypertension, he denies numbness weakness paresthesias no bowel or bladder complaints no direct trauma just pain to the is part of his back which again is lower thoracic upper lumbar Past Medical History - Allergies and Home Meds Allergies/Adverse Reactions: Allergies Penicillins Allergy (Verified 02/24/20 18:11) Hives vancomycin Allergy (Verified 02/24/20 18:11) Hives Primary Care Physician: Care Physician,No Primary [Primary Care Provider] - Past Medical History: - - Fluids as above Surgical History: no surgical history Smoking Status: Current every day smoker Review of Systems General: Denies: Chills, Fever, Sweats Eyes: Denies: Visual changes - bilaterally, Diplopia ENT: Denies: Rhinorrhea, Sore throat Cardiovascular: Denies: Chest pain, Palpitations Respiratory: Denies: Dyspnea, Cough, Dyspnea on exertion Gastrointestinal: Denies: Abdominal pain, Nausea, Vomiting, Diarrhea, Melena, Hematochezia Genitourinary: Denies: Dysuria, Hematuria, Frequency Musculoskeletal: Reports: Back pain. Denies: Extremity Pain Skin: Denies: Rash, Wounds Neurological: Denies: Headache, Weakness, Numbness Physical Exam Vital Signs/Narrative: Vital Signs Temp Pulse Resp BP Pulse Ox 02/24/20 18:14 96.8 F L 92 15 153/80 H 95 General: Well nourished, Well developed, No Acute Distress Head: Normocephalic, Atraumatic Eyes: Perrl, EOMI ENT: Moist mucous membranes, No rhinorrhea Neck: Supple, Nontender Cardiovascular: Regular rate, Regular rhythm, No murmurs Respiratory: No distress, CTA bilaterally, Chest nontender Abdomen: Soft, Nontender, Nondistended, Normal bowel sounds Back: Normal Inspection, - - Back discomfort to the thoracic and upper lumbar back area, there is no focal tenderness numbness weakness or palpable pain, he is able to stand and walk full range of motion of upper extremities and lower extremities he denies radiation to any part of his body he has no abdominal pain and again he Extremities: Nontender, No edema Skin: Normal color, No rash Neurological: Alert, Oriented x3, Cranial nerves II-XII grossly intact, Normal Strength, Normal Sensation Psychological: Normal affect, Normal Mood Diagnostic/Tx/Re-eval - Medical Decision Making All the above x-rays pain management The patient's lumbar and thoracic spines per radiology are negative for all, patient's been treated he does not wish to make this Worker's Comp. case, he wants to go home he will be given Naprosyn to use [place] as rescue medicine he will follow with his outpatient providers and return for change in symptoms I recommend he be off for a day and he will consider that Home stable Final impression acute lumbar thoracic back pain ED Disposition - Plan for ED Patient: Diagnosis: Lumbar back pain Instructions: ED Spasm Back No Trauma, ED Contusion Back Prescriptions: Naproxen [Naprosyn] 500 mg PO BID PRN #20 tab Hydrocodone Bitart/Apap 5-325 [[place] 5MG-325MG] 1 tab PO Q4H PRN PRN 2 Days #10 tab PRN Reason: Pain Prescription Printed Referrals: Care Physician,No Primary [Primary Care Provider] -
[2020-02-24] MEDS: Ibuprofen 600 MG Tablet PO (19:00)
[2020-02-24] MEDS: Acetaminophen 500 MG Tablet 1000 MG PO (19:01)
[2020-02-24] MEDS: morphine 8 MG/ML Syringe SC (19:01)
--- NOTE | 2020-02-24 19:30 | RAD_ITS ---
STUDY: X-RAY - LUMBAR SPINE REASON FOR EXAM: Male, 34 years old. injured back at work doing heavy lifting TECHNIQUE: 3 view(s) of the lumbar spine were obtained. COMPARISON: None FINDINGS: Normal lumbar lordosis. There is no substantial scoliosis. There is a normal alignment of the vertebrae. Normal vertebral bodies and endplates. Normal disc space heights. The soft tissue structures are unremarkable. RAD/Lumbar Spine 2 or 3 Views IMPRESSION: Normal x-ray examination of the lumbar spine. Electronically Signed: iTrso Mesa MD at 19:49 EST , Service support ,
[2020-02-24 20:40] VITALS: BP 126/79; PULSE 66; RESP 16; O2SAT 97
== END 2020-02-24 20:42 | disposition home or self-care (01) ==
LOC: ED 19:47
PROVIDERS: Emergency Provider Emergency Medicine
DX: M54.5 Low back pain (principal); F17.200 Nicotine dependence, unspecified, uncomplicated
CPT/HCPCS: 72070; 72100; 96374; 99283

== ENCOUNTER 2020-12-31 01:06 | Emergency (ER) | payer MEDICAID, SELFPAY ==
[2020-12-31 01:07] VITALS: BP 125/77; PULSE 61; RESP 16; TEMP 36.4; O2SAT 95; BMI 19.9
[2020-12-31 01:25] LABS: Absolute Lymphocyte Count 3.37 X10^3/uL (0.83-4.51); Absolute Neutrophil Count 5.9 X10^3/uL (2.0-7.7); Basophil# 0.06 X10^3/uL; Basophil% 0.6 % (0-1); Eosinophil# 0.22 X10^3/uL; Eosinophils% 2.1 % (0-5); Hematocrit 41.4 % (40-54); Hemoglobin 13.4 g/dL (13.0-16.5); Lymphocyte # 3.37 X10^3/ul (0.83-4.51); Lymphocyte % 31.9 % (19-41); Mean Corp Hgb Conc 32.4 g/dL (32-36); Mean Corpuscular Hgb 28.5 pg (27.0-32.0); Mean Corpuscular Volume 88.1 fL (80-94); Mean Platelet Vol. 8.7 fl (6.2-12.0); Monocyte# 1.01 X10^3/uL; Monocyte% 9.5 % (0-10); NRBC Flagged by Analyzer 0 % (0-5); Neutrophil # 5.89 X10^3/uL (2.7-7.7); Neutrophil % 55.6 % (47-70); Platelet Count 228 K/mm3 (150-450); RBC Distribution Width CV 16.6 % (11.6-14.6); RBC Distribution Width SD 53.6 fl (35.1-43.9); White Blood Count 10.6 K/mm3 (4.4-11.0)
[2020-12-31 01:42] LABS: AST(SGOT) 16 U/L (15-37); Alanine Aminotransfer ALT/SGPT 24 U/L (16-61); Albumin, Serum 3.7 g/dL (3.2-5.0); Alkaline Phosphatase 105 U/L (45-117); Anion Gap 4 (5-15); BUN 5 mg/dL (7-18); BUN/Creat Ratio 4.8 RATIO (10-20); Calcium,Total 8.8 mg/dL (8.5-10.1); Chloride 113 mmol/L (98-107); Creatinine, Serum 1.05 mg/dL (0.70-1.30); EST Glomerular Filtration Rate 85 mL/min (>60); Est Glom Filt Rate - Afr Amer 103 mL/min (>60); Globulin 3.7 g/dL (2.2-4.2); Glucose 89 mg/dL (74-106); Lipase 162 U/L (73-393); Potassium 3.4 mmol/L (3.5-5.1); Protein, Total 7.4 g/dL (6.4-8.2); Sodium Level 143 mmol/L (136-145)
--- NOTE | 2020-12-31 02:10 | CT_ITS ---
CTA THORAX/ABDOMEN/PELVIS INDICATION: Left chest tube groin pain x2 hours COMPARISON: None. TECHNIQUE: Helical axial scans were obtained through the abdomen during IV contrast infusion, followed by 100 mL saline flush. Coronal reformat images as well as 3-D rotational reconstruction of aorta and in plane reconstructions of right and left iliac arteries were obtained. CT scan done according to ALARA (As Low As Reasonably Achievable). CONTRAST: 100 mL of Omnipaque (350 mmol/mL) was administered IV with 0 mL discarded. FINDINGS: CTA Pulmonary arteries: No evidence of pulmonary arterial emboli. Thoracic aorta: No aneurysm or dissection. No atherosclerotic calcific plaque noted. Abdominal aorta: No aneurysm or dissection. Iliofemoral arteries: Widely patent Renal arteries: Widely patent Celiac artery: Widely patent SMA: Widely patent NANCY: Widely patent CT Lungs and pleura: Bilateral lower lobe dependent consolidative densities. Bilateral centrilobular emphysema. No effusions. Mediastinum and pulmonary minerva: Mildly enlarged mediastinal and bilateral hilar lymph nodes.. Heart: Normal heart size. No pericardial effusion. Liver and spleen: Normal size. Multiple liver cysts redemonstrated. No mass. Gallbladder: No calcified stones or wall thickening identified. Bile ducts: No biliary dilatation. Pancreas: No mass or enlargement. No pancreatic fluid collections. Adrenals and kidneys: No adrenal masses. Normal renal contours. No cysts. No stones identified. No hydronephrosis. Lymph nodes: No adenopathy. Bowel and mesentery: There is a normal appearance of the stomach and small bowel. No areas of bowel wall thickening or inflammation are noted. Appendix is was not visualized. Peritoneal cavity: No ascites. Pelvic structures: No significant findings. Body wall: Moderate size fat-containing left inguinal hernia with superior fat haziness.. Skeletal structures: Lumbar spine degenerative change. CT/CTA Chst, Abd, Pel W and/or WO IMPRESSION: Bilateral lower lobe dependent consolidative densities is concerning for aspiration pneumonitis. Prominent mediastinal and hilar lymph nodes are probably reactive. Moderate-sized fat-containing left inguinal hernia with suspected incarceration. CT angiogram of the thoracic and abdominal aorta and iliofemoral arteries is within normal limits. Electronically Signed: Ady Urbina MD at 3:16 EDT Tel , Service support ,
--- NOTE | 2020-12-31 02:11 | EX.ED.DYSGE1 ---
HPI History of Present Illness Chief Complaint: Abd Pain Narrative Narrative: 35-year-old male presenting with left-sided pain which she states starts in his left inguinal area and goes all the way up into his chest. This started prior to arrival. Patient states he was going to the bathroom and got turned around and was nauseous and started to vomit. He states he has a history of hernias but does not recall what kind of hernia says. He states he occasionally drinks but is not an everyday drinker. He is a smoker. He reports that he has a history of pulmonary hypertension. Patient has not had fever or chills. Patient denies diarrhea or constipation. [facility] Medical History Pulmonary hypertension Home Medications naproxen 500 mg PO BID PRN #20 tab 02/24/20 [Rx Last Taken Unknown] Allergy/AdvReac Type Severity Reaction Status Date / Time Penicillins Allergy Hives Verified 12/31/20 01:13 vancomycin Allergy Hives Verified 12/31/20 01:13 Social History Smoking Status: Current every day smoker tobacco type: cigarettes ROS ROS ED Constitutional Constitutional ED: Denies chills or fever(s) Eyes Eyes: Denies blurry vision or diplopia ENT ENT ED: Denies rhinorrhea or sore throat Cardiovascular Cardiovascular: Reports chest pain Gastrointestinal Gastrointestinal: Reports abdominal pain, nausea and vomiting; Denies constipation or diarrhea Genitourinary Genitourinary ED: Denies dysuria or hematuria Musculoskeletal Musculoskeletal: Denies arthralgias, back pain, myalgias or neck pain Integumentary Denies Abrasions or rash Neurologic Neurologic: Denies headache(s) or paresthesias EXAM Physical Exam Const Vital Signs: 12/31/20 01:07 12/31/20 03:16 12/31/20 05:21 Temperature 97.6 F L Temperature Source Temporal Pulse Rate 61 83 Respiratory Rate 16 16 18 Blood Pressure 125/77 H 124/68 H Blood Pressure Mean 93 Pulse Ox 95 Oxygen Delivery Method Room Air Positive well nourished General Appearance ED: NAD; Negative for pallor HEENT Reports moist mucous membranes Negative for trauma Eyes PERRL and EOMs intact bilaterally General Eye ED: Negative for pale conjunctiva or scleral icterus Chest Wall inspection of chest normal and palpation of chest normal Resp normal respiratory effort and clear to auscultation bilaterally Effort and Inspection: pain with movement Cardio regular rate and regular rhythm GI Inspection: Negative for abdominal distention Palpation: tender LLQ and LUQ Back/Spine no CVA tenderness Extremity normal to inspection General Extremety ED: Negative for edema or tenderness General Extremity: Negative for edema Neuro oriented x3 and CN's II-XII intact bilaterally Sensorium / Orientation: alert Motor Exam: strength 5/5 throughout Psych mental status grossly normal Skin no rashes or lesions noted and no wounds General Skin Exam: Negative for jaundice or pallor MDM MDM MDM Narrative Medical decision making narrative: 35-year-old male presenting with chest pain and abdominal pain. He states he has a history of hernia and its is in his left inguinal region. It is tender to palpation here however the patient has pain all the way up his left side and into his chest. He states he does not have any shortness of breath but does have pulmonary hypertension. Patient has not had a fever or chills. Patient denies a cough. Given the chest pain and abdominal pain I did obtain a cardiac and abdominal work-up. EKG on my interpretation shows a sinus rhythm at [address] depression in V3 which is new from his previous EKG. Otherwise his blood work was normal. Patient CTA of the chest abdomen pelvis showed possible pneumonitis of the bilateral lower lobes. Patient also has a left inguinal hernia. I attempted to reduce this initially after giving him morphine. I also discussed this with Dr. Bethea. He recommended that I place the patient in Trendelenburg and put an ice pack and give him some Ativan and then he would come in and try to reduce it. By the time he had arrived the hernia had reduced itself. Since this is currently only a cardiac problem I spoke with Dr. Oviedo who wanted the admit a patient and use Lovenox. After talking to the patient he felt improved in his left inguinal region. He was not actively having chest pain. I told him that his EKG and heart enzymes were abnormal and that he would need to be admitted. His significant other is with him and stated that she did not want to check another heart enzyme that she already knows he has about heart and he supposed to start a new medication. He did not want to stay either. I counseled him that it looks like he is having a heart attack and we probably need to get more information and monitor him. They refused. 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 He does not wish to be treated. Since the patient's hernia is better he wants to go home. I counseled him that he risks severe injury, illness, . He acknowledges understanding. Impression: 1. NSTEMI 2. Aspiration pneumonitis 3. Inguinal hernia resolved Lab Data Labs: Laboratory Results - last 24 hr 12/31/20 12/31/20 12/31/20 01:20 01:20 01:20 WBC 10.6 RBC 4.70 Hgb 13.4 Hct 41.4 MCV 88.1 MCH 28.5 MCHC 32.4 RDW Std Deviation 53.6 H RDW Coeff of [place] 16.6 H Plt Count 228 MPV 8.7 Immature Gran % (Auto) 0.300 Neut % (Auto) 55.6 Lymph % (Auto) 31.9 [place] % (Auto) 9.5 Eos % (Auto) 2.1 Baso % (Auto) 0.6 Absolute Neuts (auto) 5.9 Absolute Lymphs (auto) 3.37 Nucleated RBC % 0 Sodium 143 Potassium 3.4 L Chloride 113 H Carbon Dioxide 26.0 Anion Gap 4 L BUN 5 L Creatinine 1.05 Estim Creat Clear Calc 90.00 Est GFR (MDRD) Af Amer 103 Est GFR (MDRD) Non-Af 85 BUN/Creatinine Ratio 4.8 L Glucose 89 Calcium 8.8 Total Bilirubin 0.40 AST 16 ALT 24 Alkaline Phosphatase 105 Troponin I High Sens 120 H Total Protein 7.4 Albumin 3.7 Globulin 3.7 Albumin/Globulin Ratio 1.0 Lipase 162 Radiography Diagnostic Testing: Radiology Impression Chest/Abdomen/Pelvis CTA 12/31/20 02:10 IMPRESSION: Bilateral lower lobe dependent consolidative densities is concerning for aspiration pneumonitis. Prominent mediastinal and hilar lymph nodes are probably reactive. Moderate-sized fat-containing left inguinal hernia with suspected incarceration. CT angiogram of the thoracic and abdominal aorta and iliofemoral arteries is within normal limits. Electronically Signed: Ady Urbina MD at 3:16 EDT Tel , Service support , Discharge Plan Triage Chief Complaint: Abd Pain ED Provider: John Uribe Dx/Rx/DC Orders Instructions: ED Hernia (Adult) Prescriptions: No Action naproxen 500 MG tablet 500 mg PO BID PRN Qty: 20 RF: 0 Primary Care Provider: Care Physician,No Primary Referrals: Care Physician,No Primary [Primary Care Provider] - Activity Restrictions/Additional Instructions: For inguinal hernia was able to be reduced today. We did find that your chest x-ray appeared to look like you had aspirated and had probable pneumonia. Her EKG was also abnormal and your heart enzymes were elevated. As we discussed it looks as though you are having a heart attack. You may return at any time for reevaluation if your symptoms get worse or persist. Disposition Disposition: Against Medical Advice Discharge Date/Time: 12/31/20 05:21
--- NOTE | 2020-12-31 02:12 | EKG12_ITS ---
Test Reason : ABD PAIN Blood Pressure : / mmHG Vent. Rate : 065 BPM Atrial Rate : 065 BPM P-R Int : 118 ms QRS Dur : 106 ms QT Int : 424 ms P-R-T Axes : 047 188 032 degrees QTc Int : 440 ms Normal sinus rhythm Right ventricular hypertrophy with repolarization abnormality Confirmed by APOLO KNUTSON, VINAY ([id number]), fan mail editor TROY CHEEK ([id number]) on 01/03/2021 1:51:48 PM Referred By: LUIS ENRIQUE Confirmed By:VINAY BOONE MD
[2020-12-31] MEDS: Ondansetron 4 MG/2 ML Vial IV (02:16)
[2020-12-31] MEDS: Morphine 4 MG/ML Syringe IV (02:18)
[2020-12-31 02:53] LABS: Troponin-I HS 120 pg/mL (3.0-78.0)
[2020-12-31 03:16] VITALS: RESP 16
[2020-12-31] MEDS: LORazepam 2 MG/ML Syringe 0.5 MG IV (03:37)
--- NOTE | 2020-12-31 04:09 | CON.PCM.SX_ITS ---
Assessment & Plan Assessment/Plan (1) Left inguinal hernia: PLAN: Patient does have a left inguinal hernia containing fat which was easily reduced with Trendelenburg and ice pack. Patient does not have any swelling or incarceration in the left groin. At this time the patient does have borderline elevated troponins and possible aspiration pneumonitis per CT and he has a pump for pulmonary hypertension. At this time the hernia is not incarcerated and is easily able to be reduced. It did not contain any bowel, on ly fat. This would need to be fixed electively as an outpatient after his pulmonary and cardiac issues are optimized. Follow-up as needed. Andre Paul MD Pager: [facility] [address] [place] [address] [facility] [place], [address] [place] [address] Office: HPI Consult Data Date of Consult: 12/31/20 HPI Narrative HPI Narrative: GLENN GREENFIELD, is a 35 M who presents with groin pain that started this morning that radiates up into his left chest. Patient reports he has had this hernia in the left groin for years. He did vomit when the pain started. Patient is also having cardiac issues and has a cardiac pump for pulmonary hypertension [facility] Medical History Pulmonary hypertension Home Medications naproxen 500 mg PO BID PRN #20 tab 02/24/20 [Rx Last Taken Unknown] Allergy/AdvReac Type Severity Reaction Status Date / Time Penicillins Allergy Hives Verified 12/31/20 01:13 vancomycin Allergy Hives Verified 12/31/20 01:13 Social History Smoking Status: Current every day smoker tobacco type: cigarettes ROS Constitutional Constitutional: Denies chills or fever(s) ENT HEENT: Denies abnormal hearing Cardiovascular Cardiovascular: Reports chest pain Respiratory/Chest Respiratory/Chest: Reports cough Gastrointestinal Gastrointestinal: Reports other Details: Left groin pain with swelling and hernia Integumentary Integumentary: Denies new lesions Neurologic Neurologic: Denies dizziness Psychiatric Psychiatric: Denies anxiety Physical Exam Const alert General Appearance: cooperative HEENT normocephalic Eyes PERRL Resp normal respiratory effort Cardio Rate: regular rate GI soft to palpation and non-tender Palpation: hernia indirect inguinal left Lab / Micro Data Result Diagrams: 12/31/20 01:20 12/31/20 01:20 Labs: Laboratory Results - last 24 hr 12/31/20 01:20: WBC 10.6, RBC 4.70, Hgb 13.4, Hct 41.4, MCV 88.1, MCH 28.5, MCHC 32.4, RDW Std Deviation 53.6 H, RDW Coeff of [place] 16.6 H, Plt Count 228, MPV 8.7, Immature Gran % (Auto) 0.300, Neut % (Auto) 55.6, Lymph % (Auto) 31.9, [place] % (Auto) 9.5, Eos % (Auto) 2.1, Baso % (Auto) 0.6, Absolute Neuts (auto) 5.9, Absolute Lymphs (auto) 3.37, Nucleated RBC % 0 12/31/20 01:20: Sodium 143, Potassium 3.4 L, Chloride 113 H, Carbon Dioxide 26.0, Anion Gap 4 L, BUN 5 L, Creatinine 1.05, Estim Creat Clear Calc 90.00, Est GFR (MDRD) Af Amer 103, Est GFR (MDRD) Non-Af 85, BUN/Creatinine Ratio 4.8 L, Glucose 89, Calcium 8.8, Total Bilirubin 0.40, AST 16, ALT 24, Alkaline Phosphatase 105, Total Protein 7.4, Albumin 3.7, Globulin 3.7, Albumin/Globulin Ratio 1.0, Lipase 162 12/31/20 01:20: Troponin I High Sens 120 H Micro: Microbiology 12/31/20 03:20 Nasal Secretion SARS-CoV-2 Antigen (Rapid) - Final Radiology Impression Chest/Abdomen/Pelvis CTA 12/31/20 02:10 IMPRESSION: Bilateral lower lobe dependent consolidative densities is concerning for aspiration pneumonitis. Prominent mediastinal and hilar lymph nodes are probably reactive. Moderate-sized fat-containing left inguinal hernia with suspected incarceration. CT angiogram of the thoracic and abdominal aorta and iliofemoral arteries is within normal limits. Electronically Signed: Ady Urbina MD at 3:16 EDT Tel , Service support ,
--- NOTE | 2020-12-31 04:16 | ED.RN ---
went in to see draw repeat trop at this time patients refusing to allow staff to redraw level at this time. Dr. Uribe made aware
[2020-12-31 05:21] VITALS: BP 124/68; PULSE 83; RESP 18
== END 2020-12-31 05:21 | disposition left against medical advice (07) ==
PROVIDERS: Emergency Provider Student in an Organized Health Care Education/Training Program
DX: I21.4 Non-ST elevation (NSTEMI) myocardial infarction (principal); J69.0 Pneumonitis due to inhalation of food and vomit; K40.90 Unilateral inguinal hernia, without obstruction or gangrene, not specified as recurrent; F17.210 Nicotine dependence, cigarettes, uncomplicated; Z53.29 Procedure and treatment not carried out because of patient's decision for other reasons
CPT/HCPCS: 71275; 74174; 80053; 83690; 84484; 85025; 87426; 93005; 96374; 96375; 99282; Q9967; A4216; J2405

== ENCOUNTER 2021-06-28 18:19 | Emergency (ER) | payer MEDICAID, SELFPAY ==
[2021-06-28 18:20] VITALS: BP 137/66; PULSE 82; RESP 16; TEMP 36.3; O2SAT 99; BMI 20.9
--- NOTE | 2021-06-28 18:46 | ED.VIS.BACK ---
HPI History of Present Illness Chief Complaint: Back Informant: patient Onset/Context/Timing Onset: Hours Context: Sudden Onset Injury: lifting Timing: Continuous Quality: Sharp Location: Thoracic and Lumbar Current Severity: Moderate Maximum Severity: Moderate Worsened by: improves with Movement Relieved by: Remaining Still Associated Symptoms Associated Symptoms: Negative for Numbness, Tingling, Radiation to Right Leg, Radiation to Left Leg, Fever, Abdominal Pain, Dysuria, Unable to Ambulate, Unable to Transfer, Urinary Retention, Urinary Incontinence, Constipation and Fecal Incontinence Narrative Narrative: 35-year-old male history of pulmonary hypertension. He has had slipped disc before. Today he was lifting an engine using a transmission liat and he felt a pop and has lower back. He denies any numbness or tingling. He denies any weakness. He denies any bowel or bladder incontinence. He has never had back surgery. He denies any recent illness or fever. Prior similar symptoms: No Recent Illness/Hospitalization: No PFSH PFSH Medical History Pulmonary hypertension Home Medications ambrisentan 10 mg PO DAILY 06/28/21 [History Last Taken Unknown] diazepam [Valium] 10 mg PO TID PRN 4 Days #12 tab 06/28/21 [Rx Last Taken Unknown] epoprostenol (glycine) [Flolan] ml 06/28/21 [History Last Taken Unknown] tadalafil (pulm. hypertension) 40 mg PO DAILY 06/28/21 [History Last Taken Unknown] Allergy/AdvReac Type Severity Reaction Status Date / Time Penicillins Allergy Hives Verified 06/28/21 18:21 vancomycin Allergy Hives Verified 06/28/21 18:21 Social History Smoking Status: Current every day smoker tobacco type: cigarettes ROS ROS ED ROS Narrative Denies recent illness. Review of Systems ROS Unobtainable: Denies due to encephalopathy Constitutional Constitutional ED: Denies fever(s) Eyes Eyes: Denies change in vision ENT ENT ED: Denies ear pain Cardiovascular Cardiovascular: Denies chest pain Respiratory/Chest Respiratory/Chest: Denies dyspnea Gastrointestinal Gastrointestinal: Denies abdominal pain, diarrhea, nausea or vomiting Genitourinary Genitourinary ED: Denies dysuria Musculoskeletal Musculoskeletal: Reports back pain; Denies myalgias Integumentary Denies rash Neurologic Neurologic: Denies headache(s) Psychiatric Psychiatric: Denies depression Endocrine Endocrinology: Denies polyuria Hematologic/Lymphatic Hematologic/Lymphatic: Denies easy bruising Allergic/Immunologic Allergic/Immunologic ED: Denies urticaria EXAM Physical Exam Narrative Exam Narrative: 35-year-old male no acute distress. Vital signs stable afebrile. HEENT exam unremarkable. Neck nontender. Lungs clear to auscultation. Heart regular rate and rhythm rate about 80 no murmur. Chest wall nontender. Abdomen soft nontender. Moving all 4 extremities. 5 out of 5 primary health organisation manager strength. Dorsi plantarflexion intact. Normal medial thigh sensation. No cauda equina. No saddle anesthesia. Negative straight leg raise bilaterally. Back exam is lower thoracic and upper lumbar spinous tenderness and also paravertebral tenderness. There is no ecchymosis or bruising. No redness or warmth. Neurologically is awake and alert. There is no focal motor or sensory deficits. No signs of an acute radiculopathy. Const Vital Signs: 06/28/21 18:20 Temperature 97.4 F L Temperature Source Temporal Pulse Rate 82 Respiratory Rate 16 Blood Pressure 137/66 H Blood Pressure Mean 89 Pulse Ox 99 Oxygen Delivery Method Room Air Positive well nourished and well developed; Negative for obese, cachectic, contractures or unkempt General Appearance ED: well developed and NAD; Negative for unkempt, cachectic, contractures or pallor Nutritional Appearance: Negative for cachectic or obese HEENT Reports moist mucous membranes Negative for trauma or tenderness Eyes PERRL and EOMs intact bilaterally Neck no lymphadenopathy, supple and no JVD General: Negative for tenderness Resp normal respiratory effort and clear to auscultation bilaterally Effort and Inspection: Negative for pain with movement or other Auscultation: Negative for rales or rhonchi Cardio regular rate, regular rhythm, S1 normal heart sound, S2 normal heart sound and no murmurs GI normal to inspection, nondistended, normoactive bowel sounds, soft to palpation, non-tender, non-distended and no masses Inspection: Negative for abdominal distention Auscultation: Negative for hyperactive bowel sounds Palpation: Negative for tender, guarding or rebound tenderness present Back/Spine normal to inspection; Negative for no thoracic nor lumbar tenderness Back/Spine Narrative: Lower thoracic and upper lumbar tenderness. Paravertebral tenderness. Consistent with a myofascial strain and spasm. General Back: Negative for CVA tenderness or scar(s) Cervical Spine: Negative for cervical spine tenderness Thoracic Spine / Upper Back: paraspinal muscle tenderness Lumbar Spine / Lower Back: straight leg raise negative bilaterally; Negative for straight leg raise positive right or straight leg raise positive - left Extremity normal to inspection General Extremety ED: Negative for edema or tenderness General Extremity: Negative for edema Psych mental status grossly normal Appearance: Negative for unkempt Attitude: No agitated Mood & Affect: Negative for depressed or tearful Skin no rashes or lesions noted and no wounds General Skin Exam: Negative for jaundice or pallor MDM MDM MDM Narrative Medical decision making narrative: Patient with mid and upper lower back pain. Lifting. Consistent with a myofascial strain and spasm. No signs of cauda equina. No radiculopathy. Discussed with patient is comfortable with IM Toradol. He will be given a dose of Skelaxin here. He does not need any imaging at this time and understands that. He knows to follow-up if not improving. Discharge Plan Triage Chief Complaint: Back ED Provider: Fercho Stallings Dx/Rx/DC Orders Clinical Impression: Back strain, Muscle spasm Instructions: ED Back Sprain/Strain Prescriptions: New diazepam [Valium] 10 mg tablet 10 mg PO TID PRN (Reason: Back strain) 4 Days Qty: 12 RF: 0 No Action epoprostenol (glycine) [Flolan] 1.5 mg Recon Soln RF: 0 ambrisentan 10 mg tablet 10 mg PO DAILY RF: 0 tadalafil (pulm. hypertension) 20 mg tablet 40 mg PO DAILY RF: 0 Primary Care Provider: Care Physician,No Primary Referrals: Dann Cisneros MD [STAFF PHYSICIAN] - 3-5 Days if not improving Care Physician,No Primary [Primary Care Provider] - Activity Restrictions/Additional Instructions: Hot shower and warm bath helps relax the muscles. Massage. Motrin 600 mg 2-3 times a day to decrease pain and inflammation. Valium for muscle spasms. Do not drive or drink while using the Valium. Follow-up with your doctor if not improving. Return if leg weakness or loss of bowel or bladder control. Disposition Disposition: Home, Self Care
[2021-06-28] MEDS: Ketorolac 60 MG/2 ML Vial IM (18:55)
[2021-06-28] MEDS: Metaxalone 800 MG Tablet PO (19:10)
== END 2021-06-28 19:39 | disposition home or self-care (01) ==
PROVIDERS: Emergency Provider Emergency Medicine; Visit Provider Emergency Medicine
DX: S39.012A Strain of muscle, fascia and tendon of lower back, initial encounter (principal); I27.20 Pulmonary hypertension, unspecified; X50.0XXA Overexertion from strenuous movement or load, initial encounter; Y93.89 Activity, other specified; M62.830 Muscle spasm of back; F17.210 Nicotine dependence, cigarettes, uncomplicated; Z79.899 Other long term (current) drug therapy
CPT/HCPCS: 96372; 99283

== ENCOUNTER 2022-06-08 21:01 | Emergency (ER) | payer MEDICAID, SELFPAY ==
[2022-06-08 21:02] VITALS: BP 127/72; PULSE 92; RESP 16; TEMP 36.2; O2SAT 92; BMI 20.9
--- NOTE | 2022-06-08 23:26 | EDS_ITS ---
HPI History of Present Illness Chief Complaint: Laceration Narrative Narrative: Patient's left earlobe earring got caught at work and tore his earlobe loss. No other injuries. [facility] Medical History Pulmonary hypertension Home Medications ambrisentan 10 mg tablet 10 mg PO DAILY 06/28/21 [History Last Taken Unknown] diazepam 10 mg tablet (Valium) 10 mg PO TID PRN Back strain 4 days #12 tabs 06/28/21 [Rx Last Taken Unknown] epoprostenol (glycine) 1.5 mg intravenous solution (Flolan) ml 06/28/21 [History Last Taken Unknown] tadalafil (pulm. hypertension) 20 mg tablet (pulmonary hypertension) 40 mg PO DAILY 06/28/21 [History Last Taken Unknown] Allergy/AdvReac Type Severity Reaction Status Date / Time Penicillins Allergy Hives Verified 06/28/21 18:21 vancomycin Allergy Hives Verified 06/28/21 18:21 Social History Smoking Status: Current every day smoker tobacco type: cigarettes ROS ROS ED ROS Narrative . Past medical history: Pulmonary hypertension Medications: Reviewed Social history: Noncontributory Review of systems: ENT: As in HPI Skin: As above Neurological: No weakness or paresthesias Hematologic: No easy bleeding or easy bruising EXAM Physical Exam Narrative Exam Narrative: Physical exam General: Patient does not appear in significant distress . Head: Normocephalic, Atraumatic. ENT: Patient has the left lower earlobe almost completely off, it still has vascular supply. Neck: No C-spine tenderness Cardiovascular: Normal distal pulses Skin: 1 cm laceration HI totaling 2 cm Neurological: Normal strength and sensation Const Vital Signs: 06/08/22 21:02 Temperature 97.2 F L Temperature Source Temporal Pulse Rate 92 Respiratory Rate 16 Blood Pressure 127/72 H Blood Pressure Mean 90 Pulse Ox 92 Oxygen Delivery Method Room Air PROC Procedures Lacerations earlobe: Length: 0.79 in Depth: Skin Shape: Flap Prep: Howard Laceration repair: Foreign material removed, Irrigated, Lidocaine and Local Number of Sutures/Bryan: 7 Suture Information: Simple and 5-0 Comment: Wound edges had to be revised, I approximated the earlobe, now it is anatomical. MDM MDM MDM Narrative Medical decision making narrative: Discussed the patient with his son who was in the room, tetanus is up-to-date. Earlobe was sutured. No imaging is needed. Patient is reassured I will discharge in stable condition. Discharge Plan Triage Chief Complaint: Laceration ED Provider: Ady Mayer Dx/Rx/DC Orders Clinical Impression: Laceration of earlobe, Earlobe pain Instructions: ED Laceration: All Closures Prescriptions: No Action epoprostenol (glycine) [Flolan] 1.5 mg Recon Soln ambrisentan 10 mg tablet 10 mg PO DAILY tadalafil (pulm. hypertension) 20 mg tablet 40 mg PO DAILY diazepam [Valium] 10 mg tablet 10 mg PO TID PRN (Reason: Back strain) 4 Days Qty: 12 0RF Primary Care Provider: Care Physician,No Primary Referrals: Care Physician,No Primary [Primary Care Provider] - 5 Days for suture removal Disposition Disposition: Home, Self Care
[2022-06-08] MEDS: Lidocaine 1% (20 ml mdv) 20 ML Vial INFILT (23:44)
--- NOTE | 2022-06-08 23:48 | ED.RN ---
PT STATED THAT IT WAS NOT AN INJURY RELATED TO WORK,FREAK ACCIDENT, WHERE I ACCIDENTALLY PULLED MY EAR RING OY. I'M NOT FILING WORKMAN'S COMP.
[2022-06-08 23:50] VITALS: PULSE 78; RESP 16
== END 2022-06-08 23:50 | disposition home or self-care (01) ==
PROVIDERS: Emergency Provider Emergency Medicine; Visit Provider Emergency Medicine
DX: S01.312A Laceration without foreign body of left ear, initial encounter (principal); F17.210 Nicotine dependence, cigarettes, uncomplicated; X58.XXXA Exposure to other specified factors, initial encounter
CPT/HCPCS: 12011; 99284

== ENCOUNTER 2022-07-04 10:42 | Observation (INO) | payer MEDICAID, SELFPAY ==
[2022-07-04 10:43] VITALS: BP 125/67; PULSE 16; RESP 18; TEMP 36.9; O2SAT 100; BMI 20.2
--- NOTE | 2022-07-04 10:57 | EDS_ITS ---
HPI History of Present Illness Chief Complaint: Chest Other Narrative Narrative: Patient has a history of primary pulmonary hypertension he is on continuous Flolan from a single lumen catheter that is inserted into the right aorta. The proximal tubing is now broken and leaking and he can no longer use his Flolan. He has no current shortness of breath [facility] Medical History Pulmonary hypertension Home Medications ambrisentan 10 mg tablet 10 mg PO DAILY 06/28/21 [History Last Taken Unknown] diazepam 10 mg tablet (Valium) 10 mg PO TID PRN Back strain 4 days #12 tabs 06/28/21 [Rx Last Taken Unknown] epoprostenol (glycine) 1.5 mg intravenous solution (Flolan) ml 06/28/21 [History Last Taken Unknown] tadalafil (pulm. hypertension) 20 mg tablet (pulmonary hypertension) 40 mg PO DAILY 06/28/21 [History Last Taken Unknown] Allergy/AdvReac Type Severity Reaction Status Date / Time Penicillins Allergy Hives Verified 07/04/22 10:42 vancomycin Allergy Hives Verified 07/04/22 10:42 Social History Smoking Status: Current every day smoker tobacco type: cigarettes ROS ROS ED ROS Narrative Past medical history: Reviewed Medications: Reviewed Social history: Noncontributory Review of systems: All systems negative except as indicated General: No fever Eyes: No visual changes ENT: No upper airway congestion, normal voice Neck: No neck pain Cardiovascular: No chest pain Chest wall: As in HPI Respiratory: Currently he has no shortness of breath. Gastrointestinal: No abdominal pain, nausea vomiting or diarrhea Genitourinary: No dysuria EXAM Physical Exam Narrative Exam Narrative: Physical exam General: Patient appears relatively comfortable. Head: Normocephalic, Atraumatic Eyes: Conjunctiva not pale ENT: Moist mucous membranes Neck: Supple, Nontender, No lymphadenopathy Cardiovascular: Regular rate, Regular rhythm Respiratory: Coarse bilateral breath sounds. No respiratory distress Chest wall: Insertion site is clean dry and intact, proximal lumen of the catheter does have a crack and is leaking. Abdomen: Soft, Nontender, Nondistended Back: Nontender, Normal Inspection. Negative for: CVA tenderness Extremities: Nontender, No edema Skin: Normal color, No rash Const Vital Signs: 07/04/22 10:43 Temperature 98.4 F Temperature Source Temporal Pulse Rate 16 L Respiratory Rate 18 Blood Pressure 125/67 H Blood Pressure Mean 86 Pulse Ox 100 Oxygen Delivery Method Room Air MDM MDM MDM Narrative Medical decision making narrative: Patient continues to be stable in the ED however he has the propensity to decompensate especially that he is dependent on the Flolan. As of now he is receiving it peripherally but I talked to from [facility] who accepted the patient for rapid transfer to [facility]. As of now he has no respiratory difficulties. He appears well. Patient is informed. Discharge Plan Triage Chief Complaint: Chest Other ED Provider: Ady Mayer Dx/Rx/DC Orders Clinical Impression: Pulmonary hypertension, Acute dyspnea Prescriptions: No Action epoprostenol (glycine) [Flolan] 1.5 mg Recon Soln ambrisentan 10 mg tablet 10 mg PO DAILY tadalafil (pulm. hypertension) 20 mg tablet 40 mg PO DAILY diazepam [Valium] 10 mg tablet 10 mg PO TID PRN (Reason: Back strain) 4 Days Qty: 12 0RF Primary Care Provider: Care Physician,No Primary Referrals: Care Physician,No Primary [Primary Care Provider] - Disposition Disposition: DC/Tx to Another Type of HCF
--- NOTE | 2022-07-04 10:59 | NURSING ---
CALLED [facility] TRANSFER LINE. TALKED TO WILLOW. HE IS TALKING TO DR AVALOS
[2022-07-04 12:07] LABS: Absolute Lymphocyte Count 1.54 X10^3/uL (0.83-4.51); Basophil# 0.07 X10^3/uL; Basophil% 0.8 % (0-1); Eosinophils% 2.4 % (0-5); Hematocrit 44.9 % (40-54); Hemoglobin 14.5 g/dL (13.0-16.5); Lymphocyte # 1.54 X10^3/ul (0.83-4.51); Lymphocyte % 18.2 % (19-41); Mean Corp Hgb Conc 32.3 g/dL (32-36); Mean Corpuscular Hgb 29.4 pg (27.0-32.0); Mean Corpuscular Volume 90.9 fL (80-94); Mean Platelet Vol. 9.3 fl (6.2-12.0); Monocyte# 0.66 X10^3/uL; Monocyte% 7.8 % (0-10); NRBC Flagged by Analyzer 0 % (0-5); Neutrophil # 5.98 X10^3/uL (2.7-7.7); Neutrophil % 70.4 % (47-70); Platelet Count 270 K/mm3 (150-450); RBC Distribution Width CV 15.9 % (11.6-14.6); RBC Distribution Width SD 52.6 fl (35.1-43.9); Red Blood Count 4.94 M/mm3 (4.6-6.2); White Blood Count 8.5 K/mm3 (4.4-11.0)
--- NOTE | 2022-07-04 12:17 | NURSING ---
ACCEPTED AT [facility] MAIN. WAITING ON ROOM
[2022-07-04 12:22] LABS: ALB/GLOB Ratio 1.2 RATIO (0.9-2.4); AST(SGOT) 15 U/L (15-37); Alanine Aminotransfer ALT/SGPT 28 U/L (16-61); Albumin, Serum 3.8 g/dL (3.2-5.0); Alkaline Phosphatase 112 U/L (45-117); Anion Gap 5 (5-15); BUN 7 mg/dL (7-18); Calcium,Total 8.9 mg/dL (8.5-10.1); Chloride 112 mmol/L (98-107); EST Glomerular Filtration Rate 90 mL/min (>60); Est Glom Filt Rate - Afr Amer 108 mL/min (>60); Estimated Creatinine Clearance 95.26 ml/min; Globulin 3.3 g/dL (2.2-4.2); Glucose 76 mg/dL (74-106); Potassium 3.9 mmol/L (3.5-5.1); Protein, Total 7.1 g/dL (6.4-8.2); Sodium Level 143 mmol/L (136-145)
--- NOTE | 2022-07-04 17:56 | NURSING ---
CALLED [facility] TRANSFER LINE. TALKED TO SAMI STILL WAITING ON A BED
[2022-07-04 18:13] VITALS: BP 124/73; PULSE 74; RESP 16; TEMP 36.8; O2SAT 95
--- NOTE | 2022-07-04 18:18 | NURSING ---
Pt has general reddened skin, which per pt is normal for flolan administration through peripheral IV. IV site is stable at this time, not causing any pain. Pt denies any resp sx at this time.
[2022-07-04 20:07] VITALS: BP 118/71; PULSE 73; RESP 14; O2SAT 98
--- NOTE | 2022-07-04 20:44 | NURSING ---
CALLED [facility] TO GET AN UPDATE AND WAS TOLD WE ARE STILL WAITING FOR A BED.
[2022-07-04 21:00] VITALS: BP 121/72; PULSE 71; RESP 16; O2SAT 97
[2022-07-04 22:55] VITALS: PULSE 72; RESP 14; O2SAT 97
[2022-07-05] VITALS (8 sets, daily range): BP systolic 100–126; BP diastolic 62–76; PULSE 68–86; RESP 12–18; TEMP 36.2–36.8; O2SAT 93–98; BMI 18.8
--- NOTE | 2022-07-05 00:56 | ED.RN ---
CALL [facility] TRANSFER LINE TO UPDATE ON PT'S WORSENING RASH FROM RECEIVING FLOLAN THROUGH PERIPHERAL IV. PT HAS BRIGHT RED RASH OVER MOST OF BODY. PT STATS THIS HAS HAPPENED PREVIOUSLY WHEN RECEIVING FLOLAN THROUGH PERIPHERAL IV, DENIES DYSPNEA.
--- NOTE | 2022-07-05 08:15 | NURSING ---
CALLED [facility] TRANSFER LINE, TALKED TO SUZANNE. NO BED, DISCHARGE DEPENDENT
--- NOTE | 2022-07-05 09:12 | NURSING ---
DR SHELL FOR DR MCLEAN
--- NOTE | 2022-07-05 09:26 | NURSING ---
108 OBS [place] PULM HTN
--- NOTE | 2022-07-05 13:42 | PCM.HP.STD ---
HPI - General General Date of Admission: 07/05/22 HPI Narrative GLENN GREENFIELD, is a 36 M who presents to the hospital because his intra-aortic catheter was cracked. He is on a continuous prostacyclin infusion secondary to pulmonary hypertension since he was about 9 years old. He noticed that yesterday he the catheter, which had been in place since 2013 was cracked and medication was leaking. He came to the ER to have a peripheral IV started so he could continue with his prostacyclin however he was waiting in the ER for over [address] [facility] did not have a bed available yet. He is doing fine otherwise, he is little bit flushed but it is not an allergic reaction. [facility], [facility] Medical History Pulmonary hypertension Home Medications ambrisentan 10 mg tablet 10 mg PO DAILY HTN 06/28/21 [History Last Taken 07/04/22] epoprostenol (glycine) 1.5 mg intravenous solution (Flolan) ml continuous IV infusion DAILY HTN 06/28/21 [History Last Taken 07/05/22] tadalafil (pulm. hypertension) 20 mg tablet (pulmonary hypertension) 40 mg PO DAILY HTN 06/28/21 [History Last Taken 07/04/22] Allergy/AdvReac Type Severity Reaction Status Date / Time Penicillins Allergy Hives Verified 07/04/22 10:42 vancomycin Allergy Hives Verified 07/04/22 10:42 Family History (Updated 07/05/22 @ 13:[address] Camilo Dimas MD) Other Heart disease no surgical history Social History Smoking Status: Current every day smoker tobacco type: cigarettes ROS Constitutional Constitutional: Denies chills, fatigue, fever(s) or malaise Eyes Eyes: Denies blurry vision ENT HEENT: Denies headache(s) or nasal discharge Cardiovascular Cardiovascular: Denies chest pain, dyspnea on exertion or syncope Respiratory/Chest Respiratory/Chest: Denies cough, shortness of breath at rest or shortness of breath with exertion Gastrointestinal Gastrointestinal: Denies constipation, diarrhea, nausea or vomiting Genitourinary Genitourinary: Denies dysuria Neurologic Neurologic: Denies focal weakness, numbness or tremor(s) Psychiatric Psychiatric: Denies anxiety or depression Vital Signs Vital Signs Vital Signs: 07/04/22 18:13 07/04/22 20:07 07/04/22 21:00 Temperature 98.2 F Temperature Source Oral Pulse Rate 74 73 71 Respiratory Rate 16 14 16 Respiratory Effort Respiratory Depth Respiratory Pattern Blood Pressure 124/73 H 118/71 121/72 H Blood Pressure Mean 90 86 88 Blood Pressure Source Blood Pressure Position Blood Pressure Location Pulse Ox 95 98 97 Oxygen Delivery Method Room Air Room Air Room Air 07/04/22 22:55 07/05/22 00:47 07/05/22 02:59 Temperature Temperature Source Pulse Rate 72 73 68 Respiratory Rate 14 16 13 Respiratory Effort Respiratory Depth Respiratory Pattern Blood Pressure 124/76 H Blood Pressure Mean 92 Blood Pressure Source Blood Pressure Position Blood Pressure Location Pulse Ox 97 98 Oxygen Delivery Method Room Air Room Air Room Air 07/05/22 03:14 07/05/22 04:53 07/05/22 06:20 Temperature Temperature Source Pulse Rate 73 73 Respiratory Rate 12 16 Respiratory Effort Respiratory Depth Respiratory Pattern Blood Pressure Blood Pressure Mean Blood Pressure Source Blood Pressure Position Blood Pressure Location Pulse Ox 96 Oxygen Delivery Method Room Air Room Air Room Air 07/05/22 09:29 07/05/22 10:15 07/05/22 10:30 Temperature 97.2 F L 98.1 F Temperature Source Oral Oral Pulse Rate 86 82 Respiratory Rate 16 18 Respiratory Effort Normal Non-Labored Respiratory Depth Normal Respiratory Pattern Normal Blood Pressure 126/70 H 114/68 Blood Pressure Mean 88 83 Blood Pressure Source Monitor Blood Pressure Position Semi-Fowlers Blood Pressure Location Left Arm Pulse Ox 98 93 Oxygen Delivery Method Room Air Room Air Weight Weight: 135 lb 9.349 oz Body Mass Index (BMI) 18.8 Physical Exam Narrative General: Alert, Oriented x3, Cooperative, No apparent distress HEENT: Atraumatic, PERRLA, EOMI, Normocephalic Oral: Moist Mucosa Neck: Supple, No JVD Lungs: Clear to auscultation, Normal air movement, No rhonchi, No wheeze, No rales, transthoracic catheter in place Cardiovascular: Regular rate, Regular Rhythm, Normal S1, Normal S2, No murmurs Abdomen: Soft, Non Tender, Non-Distended, No Hepato-splenomegaly Extremities: No edema, Capillary Refill Less than 3 Seconds Skin: No rashes, No breakdown Musculoskeletal: No Tenderness to Palpation of Joints or Extremities Neurological: Cranial nerves II-XII grossly intact, Motor Exam 5/5 strength throughout, Sensory exam intact to light touch and pain Psych/Mental Status: Normal Affect, Appropriate Results Lab / Micro Data Result Diagrams: 07/04/22 11:50 07/04/22 11:50 Micro: Microbiology 07/04/22 11:05 Nasal Secretion SARS-CoV-2 Antigen (Rapid) - Final Assessment & Plan Assessment/Plan (1) Pulmonary hypertension: PLAN: Plan 1. Pulmonary hypertension/tobacco abuse ? His transthoracic catheter is cracked presented to the hospital for peripheral line placement and transferred to the [facility] for placement of another catheter ? Continues to smoke, discussed cessation ? We will continue with his Flolan and his other home medications, his Flolan is a pump that he brought from home ? We will await placement to [facility] DVT: Ambulation Charges/Coding Visit Charges Inpatient E&M: 19685 Init Hosp L2
--- NOTE | 2022-07-05 21:45 | NURSING ---
Report called to [facility] oksana wilder at this time.
--- NOTE | 2022-07-06 01:00 | NURSING ---
This nurse assume care of the patient at this time
--- NOTE | 2022-07-06 07:23 | PCM.DC.SUM ---
Providers Date of Admission: 07/05/22 Primary Care Physician: Brandi Primary Care Phys Reason For Visit: MALFUNCTIONING LINE Diagnosis Discharge Diagnosis (1) Pulmonary hypertension: Status: Acute Code(s): I27.20 - Pulmonary hypertension, unspecified Plan 1. Pulmonary hypertension/tobacco abuse ? His transthoracic catheter is cracked presented to the hospital for peripheral line placement and transferred to the [facility] for placement of another catheter ? Continues to smoke, discussed cessation ? We will continue with his Flolan and his other home medications, his Flolan is a pump that he brought from home ? We will await placement to [facility] DVT: Ambulation Medications at Discharge Home Medications ambrisentan 10 mg tablet 10 mg PO DAILY HTN 06/28/21 epoprostenol (glycine) 1.5 mg intravenous solution (Flolan) ml continuous IV infusion DAILY HTN 06/28/21 tadalafil (pulm. hypertension) 20 mg tablet (pulmonary hypertension) 40 mg PO DAILY HTN 06/28/21 Hospital Course Operations None Procedures None Summary of Care Provided Hospital Course: 36-year-old male presented to the hospital because his transthoracic catheter Cranactin his prostacyclin was leaking. He had a peripheral IV placed while pending transfer to [facility]. He was in the ER for about 22 hours prior to being admitted to the hospital pending transfer. He did become bright red and flushed with the peripheral prostacyclin which she says happens consistently whenever he has peripheral prostacyclin. He was finally accepted with a bed at 230 this morning 07/06/2022 and he was discharged to the [facility]. Weight / BMI Weight Weight: 135 lb 9.349 oz Body Mass Index (BMI) 18.8 ABG / Lab / Microbiology Data Result Diagrams: 07/04/22 11:50 07/04/22 11:50 Microbiology: Microbiology 07/04/22 11:05 Nasal Secretion SARS-CoV-2 Antigen (Rapid) - Final Meaningful Use Info Meaningful Use Diagnoses (Choose all that apply): None applicable Discharge Plan Admission Admit Date/Time: 07/05/22 09:11 Attending Provider: Camilo Dimas Primary Care Provider: Care Physician,Brandi Primary Discharge Orders/Prescriptions Prescriptions: No Action epoprostenol (glycine) [Flolan] 1.5 mg Recon Soln continuous IV infusion DAILY ambrisentan 10 mg tablet 10 mg PO DAILY tadalafil (pulm. hypertension) 20 mg tablet 40 mg PO DAILY Referrals / Follow Up: Care Physician,No Primary [Primary Care Provider] - Disposition Disposition (needs filled in before D/C Order can be placed): Acute Care Hospital
== END 2022-07-06 02:45 | disposition short-term general hospital (02) ==
LOC: ED 12:00 → PCU 07-05 09:26
PROVIDERS: Admitting Provider Family Medicine; Emergency Provider Emergency Medicine; Visit Provider Family Medicine
DX: T82.538A Leakage of other cardiac and vascular devices and implants, initial encounter (principal); I27.20 Pulmonary hypertension, unspecified; R06.00 Dyspnea, unspecified; F17.210 Nicotine dependence, cigarettes, uncomplicated; Z79.899 Other long term (current) drug therapy; Y71.8 Miscellaneous cardiovascular devices associated with adverse incidents, not elsewhere classified
CPT/HCPCS: 80053; 85025; 87811; 99221; 99284; 99406; A4216; G0378

== ENCOUNTER 2023-08-15 11:29 | Emergency (ER) | payer MEDICAID, SELFPAY ==
[2023-08-15 11:30] VITALS: BP 124/70; PULSE 80; RESP 20; TEMP 36.3; O2SAT 96
[2023-08-15 11:45] VITALS: BP 128/71; PULSE 88; RESP 20; TEMP 36.3; O2SAT 99
--- NOTE | 2023-08-15 12:25 | RAD_ITS ---
STUDY: X-RAY CHEST REASON FOR EXAM: Male, 37 years old. Cough. TECHNIQUE: Frontal and lateral views of the chest. COMPARISON: Chest CT dated 12/31/2020. FINDINGS: Right internal jugular catheter present with tip projected over the mid-SVC. Hyperinflation with mild diffuse interstitial prominence. There is no demonstrated pleural abnormality. Normal size heart. Normal mediastinum and minerva. Prominent central pulmonary arteries. Normal visualized aortic arch and descending thoracic aorta. Normal visualized thoracic spine. Normal visualized ribs, clavicles, and shoulders. No abnormality of the visualized soft tissue structures of the upper abdomen. RAD/Chest PA and Lateral IMPRESSION: Hyperinflation with mild interstitial prominence. No active or acute cardiopulmonary disease. Electronically Signed: Emerson Laboy MD at 12:39 EDT ,
--- NOTE | 2023-08-15 12:26 | EDS_ITS ---
HPI History of Present Illness Chief Complaint: Shortness of Breath Informant: patient Narrative Narrative: 37-year-old male presenting to the emergency room chief complaint of shortness of breath. Patient has a history of pulmonary hypertension. He takes tadalafil embrisenta and epoprostenol. Patient notes a cough very slight that is new but he does note sputum production. Denies any wheezing no fevers. He also notes a sore throat. No rashes. PFSH PFS Medical History Asthma Heart disease Pulmonary hypertension Home Medications ambrisentan 10 mg tablet 10 mg PO DAILY HTN 06/28/21 [History Last Taken 07/04/22] tadalafil (pulm. hypertension) 20 mg tablet (pulmonary hypertension) 40 mg PO DAILY HTN 06/28/21 [History Last Taken 07/04/22] doxycycline hyclate 100 mg tablet 100 mg PO BID #20 tabs 08/15/23 [Rx Last Taken Unknown] epoprostenol 1.5 mg intravenous solution (Veletri) 1.5 mg continuous IV infusion DAILY 08/15/23 [History Last Taken Unknown] Allergy/AdvReac Type Severity Reaction Status Date / Time clindamycin Allergy NEEDS Verified 08/15/23 11:29 FOLLOW-UP Penicillins Allergy Hives Verified 08/15/23 11:29 vancomycin Allergy Hives Verified 08/15/23 11:29 Family History Other Heart disease Surgical History History of hernia surgery History of throat surgery Social History Smoking Status: Current every day smoker tobacco type: cigarettes alcohol intake: never ROS ROS ED Constitutional Constitutional ED: Denies chills, fever(s) or weight loss Eyes Eyes: Denies change in vision or diplopia ENT ENT ED: Reports sore throat; Denies ear pain or rhinorrhea Cardiovascular Cardiovascular: Denies chest pain, orthopnea, palpitations or racing heartbeat Respiratory/Chest Respiratory/Chest: Reports cough, dyspnea, dyspnea on exertion and sputum; Denies orthopnea Gastrointestinal Gastrointestinal: Denies abdominal pain, diarrhea, nausea or vomiting Genitourinary Genitourinary ED: Denies dysuria, hematuria or urinary frequency Musculoskeletal Musculoskeletal: Denies arthralgias or myalgias Integumentary Denies abscess or rash Neurologic Neurologic: Denies headache(s) or weakness Psychiatric Psychiatric: Denies anxiety, depression, suicidal ideation or suicidal thoughts Endocrine Endocrinology: Denies polydipsia, polyphagia or polyuria Allergic/Immunologic Allergic/Immunologic ED: Denies mouth swelling, tongue swelling or urticaria EXAM Physical Exam Const Vital Signs: 08/15/23 11:30 08/15/23 11:36 08/15/23 11:45 Temperature 97.4 F L 97.4 F L Temperature Source Temporal Temporal Pulse Rate 80 88 Respiratory Rate 20 H 20 H Respiratory Effort Short of Breath Respiratory Pattern Normal Blood Pressure 124/70 H 128/71 H Blood Pressure Mean 88 90 Pulse Ox 96 99 Oxygen Delivery Method Room Air Room Air 08/15/23 13:29 08/15/23 14:02 Temperature 98.6 F Temperature Source Pulse Rate 67 66 Respiratory Rate 18 18 Respiratory Effort Respiratory Pattern Blood Pressure 112/68 104/70 Blood Pressure Mean 82 81 Pulse Ox 93 92 Oxygen Delivery Method Room Air Positive well nourished and well developed General Appearance ED: well developed HEENT Reports normocephalic, head/scalp atraumatic and moist mucous membranes Eyes PERRL and EOMs intact bilaterally Neck no lymphadenopathy, supple and no JVD Resp normal respiratory effort and clear to auscultation bilaterally Cardio regular rate, regular rhythm and no murmurs GI normal to inspection, nondistended, normoactive bowel sounds and non-tender Palpation: soft Back/Spine no CVA tenderness and normal ROM Extremity normal to inspection General Extremety ED: Negative for edema General Extremity: Negative for edema Neuro oriented x3 and CN's II-XII intact bilaterally Sensorium / Orientation: alert Motor Exam: strength 5/5 throughout Psych mental status grossly normal Mood & Affect: Negative for depressed or tearful Skin no rashes or lesions noted and no wounds MDM MDM MDM Narrative Medical decision making narrative: My independent interpretation of the chest x-ray is no acute process. COVID influenza and RSV swabs were negative. Patient is resting comfortably. His lung sounds are clear. He does still have a cough with some sputum production. Will place him on doxycycline I do not think he needs an inhaler right now would recommend hydration and rest. Patient is comfortable with this plan. History & Record Review Discussion w/independent historian: Patient Radiography Diagnostic Testing: Clinical Impression(s) from Imaging Studies Chest X-Ray 08/15/23 12:25 IMPRESSION: Hyperinflation with mild interstitial prominence. No active or acute cardiopulmonary disease. Electronically Signed: Emerson Laboy MD at 12:39 EDT Reading Location ID and State: [facility] / [place] , Service support , Discharge Plan Triage Chief Complaint: Shortness of Breath ED Provider: Pierre Yanes Dx/Rx/DC Orders Clinical Impression: Bronchitis Instructions: ED Pneumonia (Adult) Prescriptions: New doxycycline hyclate 100 mg tablet 100 mg PO BID Qty: 20 0RF No Action ambrisentan 10 mg tablet 10 mg PO DAILY tadalafil (pulm. 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 Return if worsening. Disposition Disposition: Home, Self Care Discharge Date/Time: 08/15/23 14:13
[2023-08-15 13:29] VITALS: BP 112/68; PULSE 67; RESP 18; O2SAT 93
[2023-08-15 14:02] VITALS: BP 104/70; PULSE 66; RESP 18; TEMP 37; O2SAT 92
== END 2023-08-15 14:13 | disposition home or self-care (01) ==
PROVIDERS: Emergency Provider Emergency Medicine; Visit Provider Emergency Medicine
DX: J40 Bronchitis, not specified as acute or chronic (principal); F17.210 Nicotine dependence, cigarettes, uncomplicated
CPT/HCPCS: 71046; 87631; 99282

== ENCOUNTER 2024-06-17 12:41 | Emergency (ER) | payer MEDICAID, SELFPAY ==
[2024-06-17 12:42] VITALS: BP 128/83; PULSE 72; RESP 16; TEMP 36.9; O2SAT 98; BMI 20.9
[2024-06-17] MEDS: Fluorescein 1 MG STRIP 1 STRIP LEFT EYE (13:33)
[2024-06-17] MEDS: Tetracaine 0.5% Ophthalmic Bottle 1 DRP LEFT EYE (13:34)
--- NOTE | 2024-06-17 14:09 | EDS_ITS ---
HPI History of Present Illness Chief Complaint: Eye Problem [facility] Medical History Asthma Heart disease Pulmonary hypertension Home Medications ?Medication ?Instructions ?Recorded ?Last Taken ?Type ambrisentan 10 mg tablet 10 mg PO DAILY HTN 06/28/21 07/04/22 History tadalafil (pulm. hypertension) 20 40 mg PO DAILY HTN 0 06/28/21 07/04/22 History mg tablet (pulmonary hypertension) doxycycline hyclate 100 mg tablet 100 mg PO BID #20 ta bs 08/15/23 Unknown Rx epoprostenol 1.5 mg intravenous 1.5 mg continuous IV i nfusion DAILY 08/15/23 Unknown History solution (Veletri) Allergy/AdvReac Type Severity Reaction Status Date / Time clindamycin Allergy NEEDS Verified 06/17/24 12:43 FOLLOW-UP Penicillins Allergy Hives Verified 06/17/24 12:43 vancomycin Allergy Hives Verified 06/17/24 12:43 Family History Other Heart disease Surgical History History of hernia surgery History of throat surgery Social History Smoking Status: Current every day smoker tobacco type: cigarettes alcohol intake: never EXAM Physical Exam Const Vital Signs: 06/17/24 12:42 Temperature 98.5 F Temperature Source Oral Pulse Rate 72 Respiratory Rate 16 Blood Pressure 128/83 H Blood Pressure Mean 98 Pulse Ox 98 Oxygen Delivery Method Room Air MDM MDM MDM Narrative Medical decision making narrative: I have personally performed a face to face assessment of the patient and have reviewed the ALVIN Note. I performed a substantive portion of the visit including all aspects of the following. My li findings include: History is [patient presents with redness and tearing to his left eye. Complains of mild photophobia. Patient states symptoms initially were mild yesterday. He works as a customer service driver. He is not sure if he got anything in his eye as he does not recall a time where anything went into his eye. Patient states that he slept in his contacts and then took them out this morning and did a lot more discomfort.] Exam is [HEENT-PERRLA, EOMI. Cranial nerves II through XII grossly intact. TMs clear. Mucous membranes moist. No adenopathy. Left eye-patient with conjunctival erythema. Left pupil is 4 mm and reactive and right pupil is 6 mm and reactive. Left eye stained with fluorescein and no corneal abrasions or foreign bodies noted. I did chiqui upper and lower lids and did not appreciate any foreign bodies. Patient's eye pressure in the left eye was 22. Cardiovascular-regular rate and rhythm without murmur or ectopy Lungs-clear to auscultation, chest wall stable without crepitus or subcu emphysema Abdomen-normoactive bowel sounds, soft, nontender, no rebound or rigidity, no peritoneal signs. Extremities-intact ?4, normal range of motion, normal pulses, atraumatic] Medical Decison Making [patient with redness to the conjunctiva with eye pain that responds to tetracaine and he gets relief with that. Suspect possibly an iritis. Will discuss with ophthalmology to arrange follow-up. Will start patient on antibiotic eyedrops.] Other additions or changes: [None] Discharge Plan Triage Chief Complaint: Eye Problem ED Midlevel Provider: Lynda Sabillon ED Provider: Selwyn Main Dx/Rx/DC Orders Prescriptions: No Action ambrisentan 10 mg tablet 10 mg PO DAILY tadalafil (pulm. hypertension) 20 mg tablet 40 mg PO DAILY epoprostenol [Veletri] 1.5 mg recon soln 1.5 mg CONTINUOUS IV INFUSION DAILY Patient Comments: [NO ORIGINAL SIG] doxycycline hyclate 100 mg tablet 100 mg PO BID Qty: 20 0RF Primary Care Provider: Care Physician,No Primary Referrals: Care Physician,No Primary [Primary Care Provider] - Print Language: [place] Islander
--- NOTE | 2024-06-17 14:41 | ED.RN ---
PA aware of visual acuity not done
--- NOTE | 2024-06-17 15:50 | EDS_ITS ---
HPI <MARGARITA Barth - Last Filed: 06/17/24 15:54> History of Present Illness Chief Complaint: Eye Problem Narrative Narrative: 38-year-old male states his left eye felt irritated yesterday and he woke up this morning and it is red with clear tearing and more discomfort. He wears contacts and remove the contact lens. He denies injury. 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 He has no fever, chills, or headache. PFSH <MARGARITA Barth - Last Filed: 06/17/24 15:54> PFSH Medical History Asthma Heart disease Pulmonary hypertension Home Medications ?Medication ?Instructions ?Recorded ?Last Taken ?Type ambrisentan 10 mg tablet 10 mg PO DAILY HTN 06/28/21 07/04/22 History tadalafil (pulm. hypertension) 20 40 mg PO DAILY HTN 0 06/28/21 07/04/22 History mg tablet (pulmonary hypertension) doxycycline hyclate 100 mg tablet 100 mg PO BID #20 ta bs 08/15/23 Unknown Rx epoprostenol 1.5 mg intravenous 1.5 mg continuous IV i nfusion DAILY 08/15/23 Unknown History solution (Veletri) moxifloxacin 0.5 % eye drops 1 drp LEFT EYE 4X/DAY 7 d ays #3 mL 06/17/24 Unknown Rx Allergy/AdvReac Type Severity Reaction Status Date / Time clindamycin Allergy NEEDS Verified 06/17/24 12:43 FOLLOW-UP Penicillins Allergy Hives Verified 06/17/24 12:43 vancomycin Allergy Hives Verified 06/17/24 12:43 Family History Other Heart disease Surgical History History of hernia surgery History of throat surgery Social History Smoking Status: Current every day smoker tobacco type: cigarettes alcohol intake: never ROS <MARGARITA Barth - Last Filed: 06/17/24 15:54> ROS ED ROS Narrative Constitutional: Negative for fever, chills, malaise. GI: Negative for nausea, vomiting. Neuro: Negative for headache. EXAM <MARGARITA Barth - Last Filed: 06/17/24 15:54> Physical Exam Narrative Exam Narrative: CONST: Patient sitting in no acute distress. EYES: PERRL, EOMI. Left eye is injected. Pain resolved with tetracaine. Fluorescein stain shows no abrasions, ulcers, or abnormality. No Erin sign. No foreign bodies with eyelid eversion. Normal appearance of lids lashes and lacrimal apparatus. NECK: Normal inspection. RESP: No respiratory distress, CTAB. CVS: Regular rate and rhythm, no murmur, no gallop. SKIN: Color normal, no rash, warm, dry, intact. EXTREMITIES: Normal appearance, no pedal edema. NEURO: Alert and answering questions appropriately. PSYCH: Normal affect. Const Vital Signs: 06/17/24 12:42 Temperature 98.5 F Temperature Source Oral Pulse Rate 72 Respiratory Rate 16 Blood Pressure 128/83 H Blood Pressure Mean 98 Pulse Ox 98 Oxygen Delivery Method Room Air MDM <MARGARITA Barth - Last Filed: 06/17/24 15:54> [facility] Narrative Medical decision making narrative: 38-year-old male has left eye redness and discomfort that started yesterday. He removed his contact lens prior to arrival. He has conjunctival injection. I stained his eye and there is no sign of abrasion, ulceration, or abnormality. I am concerned he could have a small abrasion I cannot visualize or iritis. I consulted ophthalmology. Dr. Funes recommended giving moxifloxacin drops and he will see him in the office tomorrow. Patient was comfortable with this plan and he was discharged in stable condition. <Dr. Selwyn Main DO - Last Filed: 06/28/24 10:29> [facility] Narrative Medical decision making narrative: 38-year-old male has left eye redness and discomfort that started yesterday. He removed his contact lens prior to arrival. He has conjunctival injection. I stained his eye and there is no sign of abrasion, ulceration, or abnormality. I am concerned he could have a small abrasion I cannot visualize or iritis. I consulted ophthalmology. Dr. Funes recommended giving moxifloxacin drops and he will see him in the office tomorrow. Patient was comfortable with this plan and he was discharged in stable condition. I have personally performed a face to face assessment of the patient and have reviewed the ALVIN Note. I performed a substantive portion of the visit including all aspects of the following. My li findings include: History is [patient with left eye discomfort that started yesterday. Does not recall at time of anything getting into his eye. He did remove his contacts yesterday. Complains of photophobia and tearing. Denies visual changes. Denies headache or recent illness. Denies head trauma or eye trauma] Exam is [HECLARISSA-PERALICE, EOMI. Cranial nerves II through XII grossly intact. TMs clear. Mucous membranes moist. No adenopathy. Left eye-patient has conjuncti mira erythema. There is tearing. Eyelids everted and no foreign bodies noted. Eye was stained with fluorescein and there was no evidence of corneal abrasions. No foreign bodies noted in the cornea. Cardiovascular-regular rate and rhythm without murmur or ectopy Lungs-clear to auscultation, chest wall stable without crepitus or subcu emphysema Abdomen-normoactive bowel sounds, soft, nontender, no rebound or rigidity, no peritoneal signs. Extremities-intact ?4, normal range of motion, normal pulses, atraumatic] Medical Decison Making [patient had eye pressure performed and it was initially 17 and the second reading was 22. I do not suspect glaucoma. Cornea is clear and there is a reactive pupil. We discussed case with ophthalmology and they recommended antibiotic drops and outpatient follow-up tomorrow.] Other additions or changes: [None] Discharge Plan Triage Chief Complaint: Eye Problem ED Midlevel Provider: Lynda Sabillon ED Provider: Selwyn Main Dx/Rx/DC Orders Clinical Impression: Conjunctivitis of left eye, Acute left eye pain Instructions: Conjunctivitis Caused by Infection Prescriptions: New moxifloxacin 0.5 % drops 1 drp LEFT EYE 4X/DAY 7 Days Qty: 3 0RF No Action ambrisentan 10 mg tablet 10 mg PO DAILY tadalafil (pulm. hypertension) 20 mg tablet 40 mg PO DAILY epoprostenol [Veletri] 1.5 mg recon soln 1.5 mg CONTINUOUS IV INFUSION DAILY Patient Comments: [NO ORIGINAL SIG] doxycycline hyclate 100 mg tablet 100 mg PO BID Qty: 20 0RF Primary Care Provider: Care Physician,No Primary Referrals: Bry Funes MD [Med Staff - Active Staff] - Care Physician,No Primary [Primary Care Provider] - Activity Restrictions/Additional Instructions: Use the antibiotic eyedrops 4 times a day. Call the ophthalmology office and they will fit you in for an appointment tomorrow. Print Language: Martiniquais Disposition Disposition: Home, Self Care Discharge Date/Time: 06/17/24 14:42
== END 2024-06-17 14:42 | disposition home or self-care (01) ==
PROVIDERS: Emergency Provider Emergency Medicine; Visit Provider Emergency Medicine
DX: H10.9 Unspecified conjunctivitis (principal); F17.210 Nicotine dependence, cigarettes, uncomplicated
CPT/HCPCS: 99282

== ENCOUNTER 2024-07-06 17:18 | Emergency (ER) | payer MEDICAID, SELFPAY ==
[2024-07-06 17:19] VITALS: BP 131/84; PULSE 83; RESP 15; TEMP 36.4; O2SAT 94; BMI 20.3
--- NOTE | 2024-07-06 17:23 | EDS_ITS ---
HPI History of Present Illness HPI Narrative: Patient presents with a right foot injury that occurred today. Patient states he also has pain in his right leg and knee. Patient states that he got his right foot and leg caught between 2 heavy objects. Patient describes the pain as sharp and aching. Patient states it is worse with weightbearing. Patient states nothing seems to help with it. Patient denies any paresthesias or weakness. Patient denies any other injuries. Chief Complaint: Lower Extremity Injury Informant: patient Occured/Mechanism Mechanism/Context: Yes blunt trauma Onset/Context/Timing Onset: Today Context: Sudden Onset Timing: Continuous Quality of Pain: Sharp and Aching Location: Right foot, lower leg, and knee Worsened by: Weightbearing Relieved by: Nothing Associated Symptoms Associated Symptoms: Negative for Parasthesia, Weakness or Loss of Funtion [facility] Medical History Asthma Heart disease Pulmonary hypertension Home Medications ?Medication ?Instructions ?Recorded ?Last Taken ?Type ambrisentan 10 mg tablet 10 mg PO DAILY HTN 06/28/21 07/04/22 History tadalafil (pulm. hypertension) 20 40 mg PO DAILY HTN 0 06/28/21 07/04/22 History mg tablet (pulmonary hypertension) doxycycline hyclate 100 mg tablet 100 mg PO BID #20 ta bs 08/15/23 Unknown Rx epoprostenol 1.5 mg intravenous 1.5 mg continuous IV i nfusion DAILY 08/15/23 Unknown History solution (Veletri) moxifloxacin 0.5 % eye drops 1 drp LEFT EYE 4X/DAY 7 d ays #3 mL 06/17/24 Unknown Rx Allergy/AdvReac Type Severity Reaction Status Date / Time clindamycin Allergy NEEDS Verified 07/06/24 17:59 FOLLOW-UP Penicillins Allergy Hives Verified 07/06/24 17:59 vancomycin Allergy Hives Verified 07/06/24 17:59 Family History Other Heart disease Surgical History History of throat surgery History of hernia surgery Social History Smoking Status: Current every day smoker tobacco type: cigarettes alcohol intake: never ROS ROS ED Constitutional Constitutional ED: Denies chills or fever(s) Eyes Eyes: Denies blurry vision or change in vision ENT ENT ED: Denies rhinorrhea or sore throat Cardiovascular Cardiovascular: Denies chest pain or palpitations Respiratory/Chest Respiratory/Chest: Denies cough or dyspnea Gastrointestinal Gastrointestinal: Denies nausea or vomiting Genitourinary Genitourinary ED: Denies dysuria or hematuria Musculoskeletal Musculoskeletal: Denies back pain or neck pain Integumentary Denies abscess or rash Neurologic Neurologic: Denies headache(s) or weakness Allergic/Immunologic Allergic/Immunologic ED: Denies mouth swelling or urticaria EXAM Physical Exam Const Vital Signs: 07/06/24 17:19 Temperature 97.5 F L Temperature Source Temporal Pulse Rate 83 Respiratory Rate 15 Blood Pressure 131/84 H Blood Pressure Mean 99 Pulse Ox 94 Oxygen Delivery Method Room Air Positive well nourished and well developed Constitutional Narrative: BMI is 20.4 General Appearance ED: well developed and NAD HEENT normocephalic and atraumatic Neck full ROM and supple Extremity Extremity Narrative: There is tenderness over the distal first metatarsal. There is mild edema. There is no ecchymosis. There is no deformity noted. There is no tenderness ankle, lower leg, or knee. Pedal pulses are equal bilaterally. Sensation was intact to light touch in all digits. Capillary refill was less than 2 seconds in all digits. Strength is 5/5 bilateral in the lower extremities. Neuro oriented x3, CN's II-XII intact bilaterally, moves all extremities and no sensory deficits noted Sensorium / Orientation: alert Motor Exam: strength 5/5 throughout Psych mental status grossly normal MDM MDM MDM Narrative Medical decision making narrative: Differential diagnosis includes fracture, sprain, and contusion. X-rays of the right foot will be obtained to assess for fracture. Radiography Diagnostic Testing: Clinical Impression(s) from Imaging Studies Foot X-Ray 07/06/24 17:38 IMPRESSION: No fracture or dislocation. If symptoms persist may, follow-up with repeat imaging in 7-10 days as warranted. Reading Location: [facility] X-rays of the right foot were obtained. There are 3 views. On my independent interpretation, there is no acute fracture. There is no dislocation noted. Radiologist also interpreted the x-rays and agrees. Treatment and Re-Evaluation Narrative: Smoking cessation was discussed. Patient was given a dose of [place] here. Patient was given a walking boot. Patient was instructed to ice and elevate the right foot. Patient was instructed to take Tylenol or ibuprofen as needed for pain. Patient was instructed to follow-up with his primary care physician in 5 to 7 days. Patient understood and was agreeable with the plan. All questions were answered. Discharge Plan Triage Chief Complaint: Lower Extremity Injury ED Provider: Tom Joyner Dx/Rx/DC Orders Clinical Impression: Right foot sprain, Tobacco use Instructions: ED Foot Sprain Prescriptions: No Action ambrisentan 10 mg tablet 10 mg PO DAILY tadalafil (pulm. hypertension) 20 mg tablet 40 mg PO DAILY epoprostenol [Veletri] 1.5 mg recon soln 1.5 mg CONTINUOUS IV INFUSION DAILY Patient Comments: [NO ORIGINAL SIG] doxycycline hyclate 100 mg tablet 100 mg PO BID Qty: 20 0RF moxifloxacin 0.5 % drops 1 drp LEFT EYE 4X/DAY 7 Days Qty: 3 0RF Primary Care Provider: Care Physician,No Primary Referrals: Lynda Maria DO [Med Staff - Active Staff] - 5-7 Days Care Physician,No Primary [Primary Care Provider] - Print Language: Hebrew Disposition Disposition: Home, Self Care
--- NOTE | 2024-07-06 17:38 | RAD_ITS ---
PROCEDURE: FOOT MIN 3 VIEWS REASON FOR EXAM: INJURY/PAIN TECHNIQUE: 3 view(s) of right foot COMPARISON: None. FINDINGS: RIGHT FOOT: No fracture or dislocation. The joint spaces appear within limits. The soft tissues appear within limits. RAD/Foot min 3 Views IMPRESSION: No fracture or dislocation. If symptoms persist may, follow-up with repeat rick ging in 7-10 days as warranted. Reading Location: [id number]
[2024-07-06] MEDS: HYDROcodone Bitartrate/Apap 5/325 Tablet PO (17:45)
== END 2024-07-06 19:09 | disposition home or self-care (01) ==
PROVIDERS: Emergency Provider Emergency Medicine; Visit Provider Emergency Medicine
DX: S93.601A Unspecified sprain of right foot, initial encounter (principal); J45.909 Unspecified asthma, uncomplicated; F17.210 Nicotine dependence, cigarettes, uncomplicated; X58.XXXA Exposure to other specified factors, initial encounter
CPT/HCPCS: 73630; 99283

== ENCOUNTER 2025-01-26 01:17 | Emergency (ER) | payer MEDICAID, SELFPAY ==
[2025-01-26 01:18] VITALS: BP 120/74; PULSE 73; RESP 18; TEMP 36.7; O2SAT 95
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
--- NOTE | 2025-01-26 01:47 | EKG12_ITS ---
Test Reason : DYSRHYTHMIA Blood Pressure : */* mmHG Vent. Rate : 66 BPM Atrial Rate : 66 BPM P-R Int : 138 ms QRS Dur : 156 ms QT Int : 442 ms P-R-T Axes : 78 191 10 degrees QTcB Int : 463 ms Normal sinus rhythm Right bundle branch block Abnormal ECG Confirmed by PAOLO KNUTSON, VINAY ([id number]), publication editor DUY CONTRERAS ([id number]) on 01/26/2025 8:39:50 AM Referred By: Confirmed By: VINAY BOONE MD
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
[2025-01-26 02:13] LABS: Hematocrit 41.3 % (40-54); Hemoglobin 14.4 g/dL (13.0-16.5); Immature Granulocytes Count 0.030 X10^3/uL (0.0-0.0); Mean Corp Hgb Conc 34.9 g/dL (32-36); Mean Corpuscular Volume 90.2 fL (80-94); Mean Platelet Vol. 8.9 fl (6.2-12.0); NRBC Flagged by Analyzer 0 % (0-5); Platelet Count 250 K/mm3 (150-450); RBC Distribution Width CV 14.3 % (11.6-14.6); RBC Distribution Width SD 47.4 fl (35.1-43.9); Red Blood Count 4.58 M/mm3 (4.6-6.2); White Blood Count 9.7 K/mm3 (4.4-11.0)
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
--- NOTE | 2025-01-26 02:30 | RAD_ITS ---
PROCEDURE: SHOULDER MIN 2 VIEWS 01/26/2025 REASON FOR EXAM: TRAUMA TECHNIQUE: Procedure Code: RADSH Modality: DX Procedure: SHOULDER MIN 2 VIEWS Laterality: Left COMPARISON: None. FINDINGS: Mild degenerative joint disease of the acromioclavicular joint. Normal glenohumeral articulation. Normal acromion. Normal humeral head and visualized proximal humerus. Normal visualized scapula. Soft tissue calcifications of the left arm. Normal visualized pulmonary apex. RAD/Shoulder min 2 Views IMPRESSION: No evidence for acute abnormality. Reading [facility] [id number]
[2025-01-26 02:38] LABS: AST(SGOT) 24 U/L (<=37); Alanine Aminotransfer ALT/SGPT 19 U/L (<=46); Albumin, Serum 4.2 g/dL (3.5-5.0); Alkaline Phosphatase 126 U/L (40-129); Anion Gap 12 (5-15); BUN 11 mg/dL (4-19); BUN/Creat Ratio 10.3 RATIO (10-20); Bilirubin, Direct 0.26 mg/dL (0.00-0.30); Calcium,Total 9.4 mg/dL (7.6-11.0); Carbon Dioxide 21.9 mmol/L (21.0-32.0); Chloride 107 mmol/L (98-108); Estimated Creatinine Clearance 80.00 ml/min (50-250); Globulin 2.3 g/dL (2.2-4.2); Glucose 109 mg/dL (70-99); Lipase 46 U/L (13-75); Potassium 3.1 mmol/L (3.3-5.1)
[2025-01-26 03:18] VITALS: BP 98/62; PULSE 61; RESP 16; O2SAT 92
[2025-01-26 04:06] VITALS: BP 101/56; PULSE 68; RESP 16; TEMP 36.6; O2SAT 92
[2025-01-26] MEDS: HYDROcodone Bitartrate/Apap 5/325 Tablet PO (04:13)
== END 2025-01-26 04:15 | disposition home or self-care (01) ==
PROVIDERS: Emergency Provider Emergency Medicine; Visit Provider Emergency Medicine
DX: S40.012A Contusion of left shoulder, initial encounter (principal); I27.20 Pulmonary hypertension, unspecified; F17.210 Nicotine dependence, cigarettes, uncomplicated; V89.2XXA Person injured in unspecified motor-vehicle accident, traffic, initial encounter
CPT/HCPCS: 70450; 71260; 72125; 73030; 74177; 80048; 80076; 83690; 85025; 93005; 96374; 96375; 96376; 99284; Q9967; A4216; J2405

== ENCOUNTER 2025-03-27 00:30 | Emergency (ER) | payer MEDICAID, SELFPAY ==
[2025-03-27 00:31] VITALS: BP 119/79; PULSE 67; RESP 16; TEMP 36.4; O2SAT 93; BMI 19.5
[2025-03-27 01:00] VITALS: BP 110/74; PULSE 61; O2SAT 92
[2025-03-27] MEDS: Ketorolac 30 MG/ML Syringe IM (01:02)
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
--- NOTE | 2025-03-27 01:10 | CT_ITS ---
PROCEDURE: CHEST WITHOUT CONTRAST 03/27/2025 REASON FOR EXAM: MUSCULOSKELETAL BACK INJURY TECHNIQUE: Chest CT without contrast. Coronal and Sagittal reconstruction series were provided. One or more dose reduction techniques were used (e.g., Automated exposure control, adjustment of the mA and/or kV according to patient size, use of iterative reconstruction technique RADIATION DOSE SUMMARY: CTDlvol: 7.7 mGy DLP: 63.9 mGycm COMPARISON: CT scan on 01/26/2025. FINDINGS: Right internal jugular central catheter is in good position. Unchanged dilated main pulmonary artery, probably pulmonary arterial hypertension. Unchanged moderate centrilobular pulmonary emphysema. Unchanged bilateral basilar airspace disease of the lower lobes, possibly representing hypoventilatory pulmonary changes and/or superimposed pneumonia. Unchanged scattered simple hepatic cysts with the largest measuring 2.3 cm. Unchanged mildly prominent mediastinal lymph nodes with the largest measuring 1.3 cm. Mild diffuse spondylosis. Normal unenhanced main pulmonary artery and right and left pulmonary arteries. Normal bilateral peripheral pulmonary arteries. Normal thoracic aorta and visualized great vessels. There is no demonstrated aortic aneurysm. Normal heart and pericardium. Normal visualized trachea and thickened bronchi. Normal pleura. CT/Chest without Contrast IMPRESSION: Coronary artery calcification (CAC) is absent. Right internal jugular central catheter is in good position. Unchanged dilated main pulmonary artery, probably pulmonary arterial hypertensi on. Unchanged moderate centrilobular pulmonary emphysema. Unchanged bilateral basilar airspace disease of the lower lobes, possibly repre senting hypoventilatory pulmonary changes and/or superimposed pneumonia. Unchanged scattered simple hepatic cysts with the largest measuring 2.3 cm. Unchanged mildly prominent mediastinal lymph nodes with the largest measuring 1 .3 cm. Mild diffuse spondylosis. Reading Location: [place] [id number]
--- NOTE | 2025-03-27 01:20 | RAD_ITS ---
PROCEDURE: SHOULDER MIN 2 VIEWS 03/27/2025 REASON FOR EXAM: INJURY TECHNIQUE: Procedure Code: RADSH Modality: DX Procedure: SHOULDER MIN 2 VIEWS Laterality: Left. COMPARISON: 01/26/2025. FINDINGS: Mild degenerative joint disease of the acromioclavicular joint. Normal glenohumeral articulation. Normal acromion. Normal humeral head and visualized proximal humerus. Normal visualized scapula. Normal visualized pulmonary apex. RAD/Shoulder min 2 Views IMPRESSION: No evidence for acute abnormality. Reading [facility]
[2025-03-27 01:57] VITALS: BP 114/70; PULSE 59; O2SAT 91
[2025-03-27 02:04] VITALS: BP 114/70; PULSE 59; RESP 16; TEMP 36.4; O2SAT 91
== END 2025-03-27 02:14 | disposition home or self-care (01) ==
PROVIDERS: Emergency Provider Specialist/Technologist Athletic Trainer; Visit Provider Specialist/Technologist Athletic Trainer
DX: M62.830 Muscle spasm of back (principal); F17.210 Nicotine dependence, cigarettes, uncomplicated
CPT/HCPCS: 71250; 73030; 96372; 99283